=== PATIENT | male | born 1980 | race Caucasian/White ===

== ENCOUNTER 2020-11-08 14:34 | Inpatient (IN) | payer MEDICARE, SELFPAY ==
[2020-11-08] VITALS (8 sets, daily range): BP systolic 122–138; BP diastolic 78–83; PULSE 85–105; RESP 20; TEMP 37.1–38.3; O2SAT 90–94; BMI 30.9
--- NOTE | 2020-11-08 14:34 | PCM.HP.STD ---
HPI - General General Date of Admission: 11/08/20 HPI Narrative MACK CARLOS, is a 40 M who presents presents with shortness of breath since the first. Patient became ill on the and then started becoming short of breath on the first. Patient short of breath with exertion and at rest. Patient presented to outside emergency room and was found to have positive COVID-19. Chest x-ray concerning patchy infiltrates bilaterally. Patient was treated with dexamethasone. Was her hospitalist contacted for admission. Patient was not vaccinated because I do not trust it. Patient thinks he contracted it from someone at work who tested positive for COVID-19 who we worked closely with. [facility] Medical History (Updated 11/08/20 @ 14:[address] Jeremy Blevins DO) Asthma Fibromyalgia HTN (hypertension) Sleep apnea Home Medications duloxetine [Cymbalta] 60 mg PO DAILY 11/08/20 [History Last Taken Unknown] fluticasone propion-salmeterol [Advair Diskus] 1 inh INHALATION Q12H 11/08/20 [History Last Taken 11/07/20 22:00] montelukast [Singulair] 10 mg PO DAILY 11/08/20 [History Last Taken 11/07/20 22:00] theophylline 300 mg PO BID 11/08/20 [History Last Taken 11/07/20 18:00] valsartan 320 mg PO DAILY 11/08/20 [History Last Taken 11/07/20 09:00] Allergy/AdvReac Type Severity Reaction Status Date / Time iodine AdvReac Anaphylaxis Verified 11/08/20 14:44 Family History (Updated 11/08/20 @ 14:[address] Jeremy Blevins DO) Other Asthma Social History (Updated 11/08/20 @ 14:[address] Jeremy Blevins DO) household members: spouse and children Smoking Status: Never smoker ROS ROS Narrative Anosmia. Dysgeusia. Chest pain when he breathes. Denies any venous thromboembolic disease. Fevers chills. All review of systems were negative except as mentioned above in the history of present illness and the other review of systems. Vital Signs Vital Signs Vital Signs: 11/08/20 14:29 Temperature 38.3 C H Temperature Source Oral Pulse Rate 105 H Respiratory Rate 20 H Blood Pressure 138/83 H Blood Pressure Mean 101 Blood Pressure Source Monitor Blood Pressure Position Semi-Fowlers Blood Pressure Location Right Arm Pulse Ox 91 Oxygen Delivery Method Nasal Cannula Oxygen Flow Rate (L/min) 4 Weight Weight: 103.561 kg Body Mass Index (BMI) 30.9 Physical Exam Const alert Constitutional Narrative: Some conversational dyspnea. Pulse ox drops to 87% with talking on 4 L. General Appearance: cooperative HEENT normocephalic Eyes Eyes Narrative: No icterus Neck no lymphadenopathy Resp normal respiratory effort Resp Narrative: Coarse breath sounds bilaterally Cardio regular rate, regular rhythm, S1 normal heart sound and S2 normal heart sound GI normal to inspection, nondistended, normoactive bowel sounds, soft to palpation, non-tender and non-distended Extremity normal to inspection and full ROM Skin no rashes or lesions noted and no wounds Neuro Sensorium / Orientation: awake and alert Psych Mood & Affect: anxious Results Medical Records Data Medical records narrative: COVID-19 test positive PCR CBC: Hemoglobin 13.9, platelets 259, white cells 9.6, lymphocytes 6% BMP: Creatinine 1, potassium 3.8, sodium 134, CRP 11.3, troponin negative x1 EKG Initial EKG: Attestation: I personally reviewed and interpreted this EKG as follows: Prior EKG tracings: available for review EKG Rhythm Intrepretation: Sinus Tachycardia (Heart rate 103. Inferior Q waves. No prior EKG available to compare to.) Assessment & Plan Assessment/Plan (1) COVID-19: (2) Acute respiratory failure with hypoxia: PLAN: 1. Acute COVID-19 pneumonia Date of onset was October 31. Patient will need to quarantine for 20 days through the Patient received dexamethasone in the emergency room at outside hospital. Continue with dexamethasone for a total of 10 days. Start remdesivir. Patient's is at home who had was close encounter with patient and is currently quarantining. Advised that she get vaccinated after she has done quarantine. Patient advised to get vaccinated next 1 to 2months after this bout with Covid as he was unvaccinated prior. Check D-dimer and if elevated to check CT angiogram of the chest I did discuss with the patient since he was apprehensive about getting the vaccine that if he would want any of these therapies including steroids, antivirals VTE prophylaxis and if he were to get worse chemical sedation and potential paralytics have required being on the ventilator. Told if he does want any of those medications then plan would be for for me to just then send him home with oxygen. He states that he wants all available therapies necessary to keep him alive. 2. Acute hypoxic respiratory failure Patient was hypoxic at the outside hospital into the 80s on room air. Currently in the high 80s to low 90s on 4 L nasal cannula I have concerns given patient's deterioration over the past few days that he may continue to to deteriorate despite appropriate therapies. Consult pulmonary for assistance and also for concern for potential pending respiratory collapse 3. 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 I will continue the theophylline for now but will ask for pulmonary's input continuation of this medication. 4. VTE prophylaxis: High risk. LMWH. 5. CODE STATUS: Discussed possibility the patient could decompensate and potentially wind up on ventilator. Patient wants all measures. Therefore patient is full CODE STATUS. Charges/Coding Visit Charges Inpatient E&M: 76645 Init Hosp L3
[2020-11-08 16:07] LABS: Theophylline (Aminophylline) 8.9 ug/mL (10.0-20.0)
[2020-11-08 16:19] LABS: D-Dimer Quantitative (DVT/PE) 0.79 FEU/ug/m (0.27-0.49)
[2020-11-08] MEDS: Ibuprofen 400 MG Tablet PO (16:22)
[2020-11-08 16:31] LABS: Alkaline Phosphatase 84 U/L (45-117)
--- NOTE | 2020-11-08 16:31 | NURSING ---
O2 SAT 86% ON O2 4L NC. INCREASED O2 TO 8L NC TO GET O2 SAT 90.
[2020-11-08] MEDS: Enoxaparin 100 MG/ML Syringe SC (18:40)
[2020-11-08] MEDS: guaiFENesin 600 MG Tablet PO (20:55)
[2020-11-08] MEDS: DULoxetine Hcl 60 MG Capsule PO (20:55)
[2020-11-08] MEDS: Montelukast 10 MG Tablet PO (20:56)
[2020-11-09] VITALS (27 sets, daily range): BP systolic 109–130; BP diastolic 56–89; PULSE 78–102; RESP 16–38; TEMP 36.8–37.6; O2SAT 78–100
[2020-11-09] MEDS: Enoxaparin 100 MG/ML Syringe SC ×2 (05:24→16:55)
[2020-11-09] MEDS: Ipratropium/Albuterol Sulfate 3 ML AMPUL.NEB INHALATION ×4 (07:07→19:04)
[2020-11-09 07:12] LABS: Absolute Lymphocyte Count 1.13 X10^3/uL (0.83-4.51); Absolute Neutrophil Count 11.2 X10^3/uL (2.0-7.7); Basophil# 0.01 X10^3/uL; Basophil% 0.1 % (0-1); Hematocrit 41.9 % (40-54); Hemoglobin 14.2 g/dL (13.0-16.5); Lymphocyte # 1.13 X10^3/ul (0.83-4.51); Lymphocyte % 8.7 % (19-41); Mean Corp Hgb Conc 33.9 g/dL (32-36); Mean Corpuscular Hgb 30.9 pg (27.0-32.0); Mean Corpuscular Volume 91.1 fL (80-94); Mean Platelet Vol. 8.7 fl (6.2-12.0); Monocyte# 0.55 X10^3/uL; Monocyte% 4.2 % (0-10); NRBC Flagged by Analyzer 0 % (0-5); Neutrophil % 86.2 % (47-70); Platelet Count 282 K/mm3 (150-450); RBC Distribution Width CV 13.9 % (11.6-14.6); RBC Distribution Width SD 46.9 fl (35.1-43.9)
[2020-11-09 07:48] LABS: ALB/GLOB Ratio 0.6 RATIO (0.9-2.4); AST(SGOT) 78 U/L (15-37); Alanine Aminotransfer ALT/SGPT 51 U/L (16-61); Albumin, Serum 2.5 g/dL (3.2-5.0); Alkaline Phosphatase 78 U/L (45-117); Anion Gap 5 (5-15); BUN 24 mg/dL (7-18); BUN/Creat Ratio 27.3 RATIO (10-20); Calcium,Total 8.3 mg/dL (8.5-10.1); Chloride 101 mmol/L (98-107); Creatinine, Serum 0.88 mg/dL (0.70-1.30); EST Glomerular Filtration Rate 101 mL/min (>60); Est Glom Filt Rate - Afr Amer 122 mL/min (>60); Estimated Creatinine Clearance 120.03 ml/min; Globulin 4.5 g/dL (2.2-4.2); Glucose 89 mg/dL (74-106); Potassium 4.5 mmol/L (3.5-5.1); Sodium Level 133 mmol/L (136-145)
--- NOTE | 2020-11-09 08:30 | NURSING ---
Pt tired looking. spo2 88% on Monitor in room with pts o2 at 15L High flow. This nurse made pt use his I.S. pt was only able to tolerate 3 reps before he quit despite encouragement. pt placed in prone position while waiting for cps as o2 dropping down to 87-78% on the 15L prior to being prone.
[2020-11-09] MEDS: Montelukast 10 MG Tablet PO (08:37)
[2020-11-09] MEDS: DULoxetine Hcl 60 MG Capsule PO (08:37)
[2020-11-09] MEDS: dexAMETHasone 4 MG Tablet 6 MG PO (08:37)
[2020-11-09] MEDS: guaiFENesin 600 MG Tablet PO ×2 (08:37→20:09)
[2020-11-09] MEDS: Losartan Potassium 100 MG Tablet PO (08:38)
--- NOTE | 2020-11-09 08:41 | NURSING ---
Pt has been prone now approximately 5 min. Spo2 staying 97% on 15L High yobany. CPS and the Charge nurse /Carrie both aware. will hold off on Air Vo at this time.
--- NOTE | 2020-11-09 09:39 | EX.PCM.CONCC ---
Assessment & Plan Assessment/Plan (1) Acute respiratory failure with hypoxia: (2) COVID-19: (3) HTN (hypertension): (4) Sleep apnea: PLAN: RECOMMENDATIONS: 1. Continue remdesivir and Decadron as ordered 2. Attempt to obtain CPAP settings or machine if possible 3. Discontinue theophylline. Add scheduled bronchodilators 4. Wean oxygen as tolerated 5. Diuresis as labs allow 6. Agree with therapeutic Lovenox in the interim IMPRESSIONS: 1. Acute hypoxic respiratory failure secondary to COVID-19 Patient does have a baseline of asthma and nonvaccination. This does increase his risk for significant decompensation from a respiratory standpoint. Patient is open to intubation if necessary. We will discontinue theophylline as this does not provide a therapeutic advantage over bronchodilators and does have the potential of toxicity given its narrow therapeutic index and potential drug drug interactions. Continue with Decadron and Remdesivir as ordered. Inhaled corticosteroids are likely not necessary. Given high potential of decompensation, reasonable to use therapeutic dose Lovenox. May transition to a 10 a inhibitor if patient stabilizes, but currently cannot exclude deterioration requiring intubation and central line. 2. Obesity/sleep apnea/hypertension/poor historian Complicates care, management, recovery and prognosis. Okay to continue with baseline antihypertensive medications from my perspective. Patient would benefit from the use of CPAP with sleep, but is unaware of his settings or DME. Clinical suspicion is for noncompliance, but home machine could be used if found. Cannot exclude the need for BiPAP rescue and the knowledge of baseline CPAP would help with CPAP recommendations. HPI Consult Data Date of Consult: 11/09/20 HPI Narrative HPI Narrative: MACK CARLOS is a 40 M, with past medical history listed below, who presents to [facility] on 11/08/2020 as an outside transfer secondary to hypoxia with COVID-19. Patient reportedly became ill on the initially. Patient had presented to an outside emergency room and was found to have COVID-19. Chest x-ray reportedly showed bilateral patchy infiltrates and he was treated with dexamethasone. Patient was not vaccinated against COVID-19 and believes he contracted from someone at work. Patient does have a history of asthma that is treated with theophylline and Advair. On presentation to [facility], patient was febrile at 38.3 ?C and tachycardic at 105 bpm. Patient was requiring 4 L initially to maintain saturations. However, over the course of his hospitalization patient has gone up to 15 L nasal cannula. Patient subjectively feels slightly worse compared to previous. Patient states that he is experiencing body aches similar to that with his fibromyalgia. Patient is having a cough but is not reporting much production. Patient has been initiated on Decadron and Remdesivir. Patient has not been able to tolerate incentive spirometer and states that he does want to be a full code. Patient reportedly does have an extensive history of asthma and allergies. Patient has never been intubated for his asthma, but was hospitalized as a child. Patient states he has been on theophylline forever and feels that it works well for him. Patient does have albuterol at home. Patient is unclear if he is ever had a pulmonary function study. Patient does report that he has JHONATHAN and that his machine is old. Patient states that no one could bring it to the hospital and he is unaware of his DME provider. Patient does not use supplemental oxygen at baseline. Review of systems otherwise negative from a constitutional, HEENT, respiratory, cardiovascular, GI, genitourinary, musculoskeletal, skin, neurologic, psychiatric and hematologic system unless stated above. [facility] Medical History (Updated 11/09/20 @ 09:[address] Mike Altamirano MD) Asthma Fibromyalgia HTN (hypertension) Sleep apnea Home Medications duloxetine [Cymbalta] 60 mg PO DAILY 11/08/20 [History Last Taken 11/07/20 22:00] fluticasone propion-salmeterol [Advair Diskus] 1 inh INHALATION Q12H 11/08/20 [History Last Taken 11/07/20 22:00] montelukast [Singulair] 10 mg PO DAILY 11/08/20 [History Last Taken 11/07/20 22:00] theophylline 300 mg PO BID 11/08/20 [History Last Taken 11/07/20 18:00] valsartan 320 mg PO DAILY 11/08/20 [History Last Taken 11/07/20 09:00] Allergy/AdvReac Type Severity Reaction Status Date / Time iodine AdvReac Anaphylaxis Verified 11/08/20 14:44 Family History Other Asthma Social History household members: spouse and children Smoking Status: Never smoker ROS ROS Narrative See HPI Physical Exam Const alert Constitutional Narrative: Some conversational dyspnea. Pulse ox drops to 87% with talking on 15 L. General Appearance: cooperative HEENT normocephalic Eyes PERRL, EOMs intact bilaterally and conjunctivae normal Neck no lymphadenopathy Chest inspection of chest normal Chest: symmetrical chest wall rise; Negative for crepitus Resp normal respiratory effort Auscultation: wheezes expiratory wheezes and throughout and diminished lung sounds; Negative for rales or rhonchi Cardio regular rate, regular rhythm, S1 normal heart sound and S2 normal heart sound GI normal to inspection, nondistended, normoactive bowel sounds, soft to palpation, non-tender and non-distended Extremity normal to inspection and full ROM Skin no rashes or lesions noted and no wounds Neuro Sensorium / Orientation: awake and alert Psych Mood & Affect: anxious Lab / Micro Data Result Diagrams: 11/09/20 06:47 11/09/20 06:47 Labs: Laboratory Results - last 24 hr 11/08/20 15:30: Theophylline 8.9 L 11/08/20 15:30: D-Dimer Quant (PE/DVT) 0.79 H* 11/08/20 15:30: Alkaline Phosphatase 84 11/09/20 06:47: WBC 13.0 H, RBC 4.60, Hgb 14.2, Hct 41.9, MCV 91.1, MCH 30.9, MCHC 33.9, RDW Std Deviation 46.9 H, RDW Coeff of Jaclyn 13.9, Plt Count 282, MPV 8.7, Immature Gran % (Auto) 0.800, Neut % (Auto) 86.2 H, Lymph % (Auto) 8.7 L, Door % (Auto) 4.2, Eos % (Auto) 0.0, Baso % (Auto) 0.1, Absolute Neuts (auto) 11.2 H, Absolute Lymphs (auto) 1.13, Nucleated RBC % 0 11/09/20 06:47: Sodium 133 L, Potassium 4.5, Chloride 101, Carbon Dioxide 27.0, Anion Gap 5, BUN 24 H, Creatinine 0.88, Estim Creat Clear Calc 120.03, Est GFR (MDRD) Af Amer 122, Est GFR (MDRD) Non-Af 101, BUN/Creatinine Ratio 27.3 H, Glucose 89, Calcium 8.3 L, Total Bilirubin 0.50, AST 78 H, ALT 51, Alkaline Phosphatase 78, Total Protein 7.0, Albumin 2.5 L, Globulin 4.5 H, Albumin/Globulin Ratio 0.6 L Charges/Coding Visit Charges Inpatient E&M: 44282 Init Hosp L3
--- NOTE | 2020-11-09 10:37 | NURSING ---
Getting breathing tx at this time. pt had stayed prone since this morning at approx 0845. Pt is laying on his side.
[2020-11-09] MEDS: Acetaminophen 325 MG Tablet 650 MG PO (10:52)
--- NOTE | 2020-11-09 11:57 | PN.HOSP_ITS ---
Subjective Subjective Increased oxygen requirements up to 15 liters. Oxygenation stabilized after he was put in prone position. Objective Data Objective Data Vital Signs: Vital Signs Temp Pulse Resp BP Pulse Ox 37.3 C 101 H 22 H 129/71 H 96 11/09/20 10:44 11/09/20 10:44 11/09/20 10:44 11/09/20 10:44 11/09/20 10:44 Oxygen Flow Rate (L/min) 15 Oxygen Delivery Method Nasal Cannula Weight: 103.561 kg Body Mass Index (BMI) 30.9 Intake & Output: Intake and Output for Last 24 Hours 11/07/20 11/08/20 11/09/20 23:59 23:59 23:59 Intake Total 850 / 850 670 / 670 Output Total 750 / 750 925 / 925 Balance 100 / 100 -255 / -255 Medical Nutrition Assessment Dietitian: Malnutrition Criteria Met Start: 11/09/20 10:12 Freq: Status: Active Protocol: Document 11/09/20 10:13 AMALIA (Rec: 11/09/20 10:13 AMALIA [id number]) Nutrition Malnutrition Evidence of Malnutrition Exists Yes Malnutrition (severe): Acute Illness/Injury Evidenced By Suboptimal Energy Intake ( Severe),Weight Loss (Severe) Clinical Problem Acute Disease or Injury Related Malnutrition Etiology related to covid and inadequate po intake to meet estimated nutritional needs Signs/Symptoms as evidenced by 3.1% wt loss and po intake <50% as 1 wk prior to admission Status Active Problem Recommendation Dietitian Recommendations/Changes Will continue regular diet Will provide 240 ml ensure enlive w/ meals for increased nutrition if consumed d/t s/s malnutrition Lab / Micro Data Result Diagrams: 11/09/20 06:47 11/09/20 06:47 Labs: Laboratory Results - last 24 hr 11/08/20 15:30: Theophylline 8.9 L 11/08/20 15:30: D-Dimer Quant (PE/DVT) 0.79 H* 11/08/20 15:30: Alkaline Phosphatase 84 11/09/20 06:47: WBC 13.0 H, RBC 4.60, Hgb 14.2, Hct 41.9, MCV 91.1, MCH 30.9, MCHC 33.9, RDW Std Deviation 46.9 H, RDW Coeff of Jaclyn 13.9, Plt Count 282, MPV 8.7, Immature Gran % (Auto) 0.800, Neut % (Auto) 86.2 H, Lymph % (Auto) 8.7 L, [place] % (Auto) 4.2, Eos % (Auto) 0.0, Baso % (Auto) 0.1, Absolute Neuts (auto) 11.2 H, Absolute Lymphs (auto) 1.13, Nucleated RBC % 0 11/09/20 06:47: Sodium 133 L, Potassium 4.5, Chloride 101, Carbon Dioxide 27.0, Anion Gap 5, BUN 24 H, Creatinine 0.88, Estim Creat Clear Calc 120.03, Est GFR (MDRD) Af Amer 122, Est GFR (MDRD) Non-Af 101, BUN/Creatinine Ratio 27.3 H, Gluc ose 89, Calcium 8.3 L, Total Bilirubin 0.50, AST 78 H, ALT 51, Alkaline Phosphatase 78, Total Protein 7.0, Albumin 2.5 L, Globulin 4.5 H, Albumin/Globulin Ratio 0.6 L Physical Exam Const alert Constitutional Narrative: laying on abdomen. Resp normal respiratory effort and no retractions Resp Narrative: coarse breath sound bilaterally. Cardio regular rate, regular rhythm, S1 normal heart sound and S2 normal heart sound GI normal to inspection, nondistended, normoactive bowel sounds, soft to palpation, non-tender and non-distended Extremity normal to inspection and no clubbing, cyanosis or edema Psych Mood & Affect: depressed Assessment & Plan Assessment/Plan (1) COVID-19: (2) Acute respiratory failure with hypoxia: PLAN: 1. Acute COVID-19 pneumonia Date of onset was October 31. Patient will need to quarantine for 20 days through the Patient received dexamethasone in the emergency room at outside hospital. Continue with dexamethasone for a total of 10 days. Remdesivir through 11/12/2020. Patient's is at home who had was close encounter with patient and is currently quarantining. Advised that she get vaccinated after she has done quarantine. Patient advised to get vaccinated next 1 to 2months after this bout with Covid as he was unvaccinated prior. D-dimer elevated but unable to check CT angiogram to evaluate for PE given that patient develops anaphylaxis with iodine products. I did discuss with the patient since he was apprehensive about getting the vaccine that if he would want any of these therapies including steroids, antivirals VTE prophylaxis and if he were to get worse chemical sedation and potential paralytics have required being on the ventilator. Told if he does want any of those medications then plan would be for for me to just then send h im home with oxygen. He states that he wants all available therapies necessary to keep him alive. 2. Acute hypoxic respiratory failure Patient was hypoxic at the outside hospital into the 80s on room air. Currently in the high 80s to low 90s on 4 L nasal cannula I have concerns given patient's deterioration over the past few days that he may continue to to deteriorate despite appropriate therapies. Patient improved while prone but is on higher flow oxygen currently. Pulmonary following and input appreciated 3. 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 4. VTE prophylaxis: High risk. LMWH. 5. CODE STATUS: Discussed possibility the patient could decompensate and p otentially wind up on ventilator. Patient wants all measures. Therefore patient is full CODE STATUS. Charges/Coding Visit Charges Inpatient E&M: 56729 Subs Hosp L2
--- NOTE | 2020-11-09 16:56 | NURSING ---
Sp02 dropping, pt instructed to go on his abd. pt in prone position again at this nurse increased oxygen to 15L high flow NC from 13 L high flow NC. Sp02 only 89-90%
--- NOTE | 2020-11-09 18:32 | NURSING ---
Dinner arrived., pt assisted back onto back and semi fowlers position. Spo2 on 15L N[place] high flow is staying around 86%. this nurse called and is having Carrie charge nurse call CPS to come and apply Airvo on pt.
[2020-11-09] MEDS: Ibuprofen 400 MG Tablet PO (20:10)
[2020-11-10] VITALS (23 sets, daily range): BP systolic 101–136; BP diastolic 57–90; PULSE 68–89; RESP 12–36; TEMP 36.4–37.3; O2SAT 83–97
[2020-11-10 07:38] LABS: Absolute Lymphocyte Count 0.91 X10^3/uL (0.83-4.51); Absolute Neutrophil Count 9.5 X10^3/uL (2.0-7.7); Basophil# 0.01 X10^3/uL; Basophil% 0.1 % (0-1); Hematocrit 44.3 % (40-54); Hemoglobin 15.2 g/dL (13.0-16.5); Lymphocyte # 0.91 X10^3/ul (0.83-4.51); Mean Corp Hgb Conc 34.3 g/dL (32-36); Mean Corpuscular Volume 90.2 fL (80-94); Mean Platelet Vol. 8.8 fl (6.2-12.0); Monocyte# 0.77 X10^3/uL; Monocyte% 6.8 % (0-10); NRBC Flagged by Analyzer 0 % (0-5); Neutrophil # 9.52 X10^3/uL (2.7-7.7); Neutrophil % 83.9 % (47-70); Platelet Count 326 K/mm3 (150-450); RBC Distribution Width CV 13.8 % (11.6-14.6); Red Blood Count 4.91 M/mm3 (4.6-6.2); White Blood Count 11.4 K/mm3 (4.4-11.0)
[2020-11-10] MEDS: Ipratropium/Albuterol Sulfate 3 ML AMPUL.NEB INHALATION ×4 (07:43→21:12)
[2020-11-10 08:07] LABS: Anion Gap 6 (5-15); BUN 30 mg/dL (7-18); BUN/Creat Ratio 38.8 RATIO (10-20); Calcium,Total 8.8 mg/dL (8.5-10.1); Chloride 104 mmol/L (98-107); Creatinine, Serum 0.77 mg/dL (0.70-1.30); EST Glomerular Filtration Rate 117 mL/min (>60); Est Glom Filt Rate - Afr Amer 142 mL/min (>60); Estimated Creatinine Clearance 137.17 ml/min; Glucose 110 mg/dL (74-106); Potassium 4.5 mmol/L (3.5-5.1); Sodium Level 136 mmol/L (136-145)
[2020-11-10 08:41] LABS: AST(SGOT) 58 U/L (15-37); Alanine Aminotransfer ALT/SGPT 50 U/L (16-61); Albumin, Serum 2.6 g/dL (3.2-5.0); Alkaline Phosphatase 86 U/L (45-117); Bilirubin, Direct 0.13 mg/dL (0.00-0.30); Globulin 4.2 g/dL (2.2-4.2); Protein, Total 6.8 g/dL (6.4-8.2)
[2020-11-10] MEDS: Montelukast 10 MG Tablet PO (09:07)
[2020-11-10] MEDS: DULoxetine Hcl 60 MG Capsule PO (09:07)
[2020-11-10] MEDS: Enoxaparin 100 MG/ML Syringe SC ×2 (09:07→21:13)
[2020-11-10] MEDS: guaiFENesin 600 MG Tablet PO ×2 (09:07→21:12)
[2020-11-10] MEDS: Losartan Potassium 100 MG Tablet PO (09:07)
--- NOTE | 2020-11-10 09:28 | PN.CC_ITS ---
Assessment & Plan Assessment/Plan (1) Acute respiratory failure with hypoxia: (2) COVID-19: (3) HTN (hypertension): (4) Sleep apnea: PLAN: RECOMMENDATIONS: 1. Continue remdesivir and Decadron as ordered 2. Attempt to obtain CPAP settings or machine if possible 3. Continue scheduled bronchodilators. 4. Wean oxygen as tolerated 5. Diuresis as labs allow 6. Agree with therapeutic Lovenox in the interim IMPRESSIONS: 1. Acute hypoxic respiratory failure secondary to COVID-19 Patient does have a baseline of asthma and nonvaccination. This does increase his risk for significant decompensation from a respiratory standpoint. Patient is open to intubation if necessary. We will discontinue home theophylline as this does not provide a therapeutic advantage over bronchodilators and does have the potential of toxicity given its narrow therapeutic index and potential drug drug interactions. Continue with Decadron and Remdesivir as ordered. Inhaled corticosteroids are likely not necessary. Given high potential of decompensation, reasonable to use therapeutic dose Lovenox. May transition to a 10 a inhibitor if patient stabilizes, but currently cannot exclude deterioration requiring intubation and central line. Patient will be challenged with diuretics today. 2. Obesity/sleep apnea/hypertension/poor historian Complicates care, management, recovery and prognosis. Okay to continue with baseline antihypertensive medications from my perspective. Patient would benefit from the use of CPAP with sleep, but is unaware of his settings or DME. Clinical suspicion is for noncompliance, but home machine could be used if found. Cannot exclude the need for BiPAP rescue and the knowledge of baseline CPAP would help with CPAP recommendations. Subjective Subjective Patient did okay overnight. Patient subjectively unchanged compared to previous. Patient still reporting a nonproductive cough. No fevers were noted overnight. Patient still with significant dyspnea on exertion, but feels more comfortable at rest. Objective Data Objective Data Vital Signs: Vital Signs Temp Pulse Resp BP Pulse Ox 36.4 C L 81 18 118/61 94 11/10/20 09:02 11/10/20 09:02 11/10/20 09:02 11/10/20 09:02 11/10/20 09:02 Oxygen Flow Rate (L/min) 60 Oxygen Delivery Method Airvo Weight: 103.561 kg Body Mass Index (BMI) 30.9 Intake & Output: Intake and Output for Last 24 Hours 11/08/20 11/09/20 11/10/20 23:59 23:59 23:59 Intake Total 850 / 850 1340 / 1340 Output Total 750 / 750 1425 / 1425 400 / 400 Balance 100 / 100 -85 / -85 -400 / -400 Medical Nutrition Assessment Dietitian: Malnutrition Criteria Met Start: 11/09/20 10:12 Freq: Status: Active Protocol: Document 11/09/20 10:13 AMALIA (Rec: 11/09/20 10:13 AMALIA [id number]) Nutrition Malnutrition Evidence of Malnutrition Exists Yes Malnutrition (severe): Acute Illness/Injury Evidenced By Suboptimal Energy Intake ( Severe),Weight Loss (Severe) Clinical Problem Acute Disease or Injury Related Malnutrition Etiology related to covid and inadequate po intake to meet estimated nutritional needs Signs/Symptoms as evidenced by 3.1% wt loss and po intake <50% as 1 wk prior to admission Status Active Problem Recommendation Dietitian Recommendations/Changes Will continue regular diet Will provide 240 ml ensure enlive w/ meals for increased nutrition if consumed d/t s/s malnutrition Lab / Micro Data Result Diagrams: 11/10/20 07:19 11/10/20 07:19 Labs: Laboratory Results - last 24 hr 11/10/20 07:19: WBC 11.4 H, RBC 4.91, Hgb 15.2, Hct 44.3, MCV 90.2, MCH 31.0, MCHC 34.3, RDW Std Deviation 46.0 H, RDW Coeff of Jaclyn 13.8, Plt Count 326, MPV 8.8, Immature Gran % (Auto) 1.200 H, Neut % (Auto) 83.9 H, Lymph % (Auto) 8.0 L, [place] % (Auto) 6.8, Eos % (Auto) 0.0, Baso % (Auto) 0.1, Absolute Neuts (auto) 9.5 H, Absolute Lymphs (auto) 0.91, Nucleated RBC % 0 11/10/20 07:19: Sodium 136, Potassium 4.5, Chloride 104, Carbon Dioxide 26.0, Anion Gap 6, BUN 30 H, Creatinine 0.77, Estim Creat Clear Calc 137.17, Est GFR ( MDRD) Af Amer 142, Est GFR (MDRD) Non-Af 117, BUN/Creatinine Ratio 38.8 H, Glucose 110 H, Calcium 8.8 11/10/20 07:19: Total Bilirubin 0.50, Direct Bilirubin 0.13, AST 58 H, ALT 50, Alkaline Phosphatase 86, Total Protein 6.8, Albumin 2.6 L, Globulin 4.2 Physical Exam Const Constitutional Narrative: Some conversational dyspnea. Pulse ox drops to 87% with talking on Airvo Eyes PERRL, EOMs intact bilaterally and conjunctivae normal Neck full ROM and No nuchal rigidity Lymph Lymphatic: no lymphadenopathy noted Chest inspection of chest normal Chest: symmetrical chest wall rise; Negative for crepitus Resp Auscultation: diminished lung sounds; Negative for rales, rhonchi or wheezes Cardio regular rate, regular rhythm, S1 normal heart sound, S2 normal heart sound, no murmurs, no rub and no gallops GI normal to inspection, nondistended, normoactive bowel sounds Extremity normal to inspection, full ROM and normal capillary refill Skin no rashes or lesions noted and no wounds Skin Narrative: Multiple tattoos. Neuro oriented x3, CN's II-XII intact bilaterally, moves all extremities and no focal motor deficits Psych mental status grossly normal, thought process normal, cooperative and affect normal Charges/Coding Visit Charges Inpatient E&M: 89028 Subs Hosp L3
[2020-11-10] MEDS: 0.9% Saline Lock 10 ML Syringe IV (10:08)
[2020-11-10] MEDS: Furosemide 40 MG Tablet PO (10:08)
[2020-11-10] MEDS: dexAMETHasone 4 MG Tablet 6 MG PO (10:08)
--- NOTE | 2020-11-10 13:29 | PCM.PN.HOSP ---
Subjective Subjective Patient is still is very hypoxic. Patient advised to maintain prone position as much as possible. Patient has history of asthma/bronchial hypersensitivity. No fever. Objective Data Objective Data Vital Signs: Vital Signs Temp Pulse Resp BP Pulse Ox 98.4 F 82 20 H 111/71 94 11/10/20 11:48 11/10/20 12:02 11/10/20 12:02 11/10/20 11:48 11/10/20 12:02 Oxygen Flow Rate (L/min) 60 Oxygen Delivery Method Airvo Weight: 228 lb 5 oz Body Mass Index (BMI) 30.9 Intake & Output: Intake and Output for Last 24 Hours 11/08/20 11/09/20 11/10/20 23:59 23:59 23:59 Intake Total 850 / 850 1340 / 1340 200 / 200 Output Total 750 / 750 1425 / 1425 900 / 900 Balance 100 / 100 -85 / -85 -700 / -700 Medical Nutrition Assessment Dietitian: Malnutrition Criteria Met Start: 11/09/20 10:12 Freq: Status: Active Protocol: Document 11/09/20 10:13 AMALIA (Rec: 11/09/20 10:13 AMALIA [id number]) Nutrition Malnutrition Evidence of Malnutrition Exists Yes Malnutrition (severe): Acute Illness/Injury Evidenced By Suboptimal Energy Intake ( Severe),Weight Loss (Severe) Clinical Problem Acute Disease or Injury Related Malnutrition Etiology related to covid and inadequate po intake to meet estimated nutritional needs Signs/Symptoms as evidenced by 3.1% wt loss and po intake <50% as 1 wk prior to admission Status Active Problem Recommendation Dietitian Recommendations/Changes Will continue regular diet Will provide 240 ml ensure enlive w/ meals for increased nutrition if consumed d/t s/s malnutrition Lab / Micro Data Result Diagrams: 11/10/20 07:19 11/10/20 07:19 Labs: Laboratory Results - last 24 hr 11/10/20 07:19: WBC 11.4 H, RBC 4.91, Hgb 15.2, Hct 44.3, MCV 90.2, MCH 31.0, MCHC 34.3, RDW Std Deviation 46.0 H, RDW Coeff of Jaclyn 13.8, Plt Count 326, MPV 8.8, Immature Gran % (Auto) 1.200 H, Neut % (Auto) 83.9 H, Lymph % (Auto) 8.0 L, [place] % (Auto) 6.8, Eos % (Auto) 0.0, Baso % (Auto) 0.1, Absolute Neuts (auto) 9.5 H, Absolute Lymphs (auto) 0.91, Nucleated RBC % 0 11/10/20 07:19: Sodium 136, Potassium 4.5, Chloride 104, Carbon Dioxide 26.0, Anion Gap 6, BUN 30 H, Creatinine 0.77, Estim Creat Clear Calc 137.17, Est GFR (MDRD) Af Amer 142, Est GFR (MDRD) Non-Af 117, BUN/Creatinine Ratio 38.8 H, Glucose 110 H, Calcium 8.8 11/10/20 07:19: Total Bilirubin 0.50, Direct Bilirubin 0.13, AST 58 H, ALT 50, Alkaline Phosphatase 86, Total Protein 6.8, Albumin 2.6 L, Globulin 4.2 Physical Exam Narrative General: Alert, Oriented x3, Cooperative HEENT: Atraumatic, PERRLA, EOMI, Normocephalic Oral: No Gingival or Mucosal Lesions/ Ulcerations Neck: Supple, No JVD, Negative Carotid Bruits Lungs: Air entry diminished in bilateral lung bases. Bilateral coarse crepitations. Severely hypoxic ON AIRVO Cardiovascular: Regular rate, Regular Rhythm, Normal S1, Normal S2, No murmurs Abdomen: Bowel Sounds Present, Soft, Non Tender, Non-Distended : No renal angle tenderness. No suprapubic tenderness. Extremities: No edema, Capillary Refill Less than 3 Seconds Skin: No rashes, No breakdown Musculoskeletal: No Tenderness to Palpation of Joints or Extremities Neurological: Cranial nerves II-XII grossly intact, DTR 2+/4 and Symmetrical, Neuro grossly intact Psych/Mental Status: Normal Affect, Appropriate. Assessment & Plan Assessment/Plan (1) Acute respiratory failure with hypoxia: (2) COVID-19: PLAN: 1. Acute hypoxic respiratory failure secondary to bilateral COVID-19 pneumonia: Date of onset October 31, quarantine for 20 days through . On high flow oxygen. Seen by slasher operator will try to obtain CPAP if possible. On scheduled bronchodilator. Patient on Decadron and remdesivir. On Mucinex, incentive spirometry and Pep. 2. Asthma and allergies: Patient has history of smoking cigarettes, started in teenage and quit few years ago. Patient home theophylline is on hold because of narrow therapeutic index and potential drug drug interaction.. 3. Obesity, possible obstructive sleep apnea: BMI 31 Kd per meter squared VTE prophylaxis: High risk. LMWH. CODE STATUS: Full code Charges/Coding Visit Charges Inpatient E&M: 42949 Subs Hosp L2
[2020-11-11] VITALS (22 sets, daily range): BP systolic 100–124; BP diastolic 63–86; PULSE 69–86; RESP 12–38; TEMP 36.8–37.2; O2SAT 92–99
--- NOTE | 2020-11-11 03:59 | CPS ---
Pt is in the prone position with bipap on.
--- NOTE | 2020-11-11 04:36 | NURSING ---
Positioned into prone position during this time.
--- NOTE | 2020-11-11 06:41 | NURSING ---
Patient turned from prone position to supine position during this time. Remains on BIPAP.
[2020-11-11] MEDS: Ipratropium/Albuterol Sulfate 3 ML AMPUL.NEB INHALATION ×4 (08:00→19:32)
[2020-11-11] MEDS: dexAMETHasone 4 MG Tablet 6 MG PO (09:48)
[2020-11-11] MEDS: Enoxaparin 100 MG/ML Syringe SC ×2 (09:48→21:22)
[2020-11-11] MEDS: Losartan Potassium 100 MG Tablet PO (09:49)
[2020-11-11] MEDS: Montelukast 10 MG Tablet PO (09:49)
[2020-11-11] MEDS: DULoxetine Hcl 60 MG Capsule PO (09:49)
[2020-11-11] MEDS: guaiFENesin 600 MG Tablet PO ×2 (09:49→21:22)
--- NOTE | 2020-11-11 12:30 | CASEMGMT ---
SW assisted pt in completing POA for Healthcare. Pt put Terri Babcockr as his medical POA. Pt has original form, SW advised pt when out of quarantine to provide a copy to his PCP and to this hospital. SW remains available for any additional assist. SHUKRI Ramirez
--- NOTE | 2020-11-11 12:40 | CASEMGMT ---
RAMA GARCIA Assessment: Face to Face with pt for initial transition planning/care coordination assessment. RAMA GARCIA introduced self and role at [facility], pt voices understanding and consents to assessment. Pt is A/O x4 and answers all questions appropriately at this time. Pt sitting up on edge of bed with O2 on in no distress ready to eat lunch. Care providers, pharmacy, and demographics verified/updated. Admitting Dx: COVID 19 PCP:[facility] Specialists:Pt denies Preferred Pharmacy: [facility] Insurance: [employer] Prescription Benefit: yes LW/HPOA: Pt denies having a LW. Pt states social service liaison just was in room to complete DPOA. He states his DPOA is his sig other Terri Samano. LNOK: Terri Oconnorurer, sig other Living Arrangements: Pt lives with sig other and son in a single story house with 7 steps to enter with a rail. Pt reports being I in ADL's and denies concerns at home. Transportation: Pt drives self and denies concerns with transportation. DME/HHC: Pt denies having any DME in the home nor hx of HHC. 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 He states he was first tested with a positive result at his employer. Pt states he has been trying to quarantine from his sig other but he does not have separate bedroom and bathroom he can use. Pt does have family who is able to provide him with groceries and supplies. Pt provided with a verbal list of local in network DME companies should he need O2 upon dc. Pt chooses [employer]. Pt states no concerns with going home at time of dc. Pt states no further concerns/needs. CM to follow. Advised pt to ask CM if any further question/concerns/needs arise, voices understanding. Pt Goal: Home Plan: Home
--- NOTE | 2020-11-11 13:37 | PCM.PN.HOSP ---
Subjective Subjective Patient is still short of breath with mild cough. Objective Data Objective Data Vital Signs: Vital Signs Temp Pulse Resp BP Pulse Ox 98.2 F 81 20 H 108/64 93 11/11/20 12:24 11/11/20 12:24 11/11/20 12:24 11/11/20 12:24 11/11/20 12:24 Oxygen Flow Rate (L/min) 60 Oxygen Delivery Method Airvo Weight: 228 lb 6.382 oz Body Mass Index (BMI) 30.9 Intake & Output: Intake and Output for Last 24 Hours 11/09/20 11/10/20 11/11/20 23:59 23:59 23:59 Intake Total 1340 / 1340 1300 / 1300 1570 / 1570 Output Total 1425 / 1425 1625 / 1625 500 / 500 Balance -85 / -85 -325 / -325 1070 / 1070 Medical Nutrition Assessment Dietitian: Malnutrition Criteria Met Start: 11/09/20 10:12 Freq: Status: Active Protocol: Document 11/11/20 11:46 RMA (Rec: 11/11/20 11:47 RMA [id number]) Nutrition Malnutrition Evidence of Malnutrition Exists Yes Malnutrition (severe): Acute Illness/Injury Evidenced By Suboptimal Energy Intake ( Severe),Weight Loss (Severe) Clinical Problem Acute Disease or Injury Related Malnutrition Etiology Severe protein-calorie malnutrition in the context of acute illness related to inadequate oral intake Signs/Symptoms as evidenced by 3.1% wt loss and po intake <50% as 1 wk prior to admission Status Resolved Problem Recommendation Dietitian Recommendations/Changes Will continue regular diet for now, intake gradually improving. Will d/c ensure enlive w/ meals due to refusal. Lab / Micro Data Result Diagrams: 11/10/20 07:19 11/10/20 07:19 Physical Exam Narrative General: Alert, Oriented x3, Cooperative HEENT: Atraumatic, PERRLA, EOMI, Normocephalic Oral: No Gingival or Mucosal Lesions/ Ulcerations Neck: Supple, No JVD, Negative Carotid Bruits Lungs: Air entry diminished in bilateral lung bases. Bilateral coarse crepitations. ON AIRVO Cardiovascular: Regular rate, Regular Rhythm, Normal S1, Normal S2, No murmurs Abdomen: Bowel Sounds Present, Soft, Non Tender, Non-Distended : No renal angle tenderness. No suprapubic tenderness. Extremities: No edema, Capillary Refill Less than 3 Seconds Skin: No rashes, No breakdown Musculoskeletal: No Tenderness to Palpation of Joints or Extremities Neurological: Cranial nerves II-XII grossly intact, DTR 2+/4 and Symmetrical, Neuro grossly intact Psych/Mental Status: Normal Affect, Appropriate. Assessment & Plan Assessment/Plan (1) Acute respiratory failure with hypoxia: (2) COVID-19: PLAN: 1. Acute hypoxic respiratory failure secondary to bilateral COVID-19 pneumonia: Date of onset October 31, quarantine for 20 days through . On high flow oxygen. Seen by sales marketing coordinator will try to obtain CPAP if possible. On scheduled bronchodilator. Patient on Decadron and remdesivir. On Mucinex, incentive spirometry and Pep. 11/11: Prone position encouraged. Continue treatment. Discussed with the patient's who was on phone with the patient and gave clinical update. 2. Asthma and allergies: Patient has history of smoking cigarettes, started in teenage and quit few years ago. Patient home theophylline is on hold because of narrow therapeutic index and potential drug drug interaction.. 3. Obesity, possible obstructive sleep apnea: BMI 31 Kd per meter squared VTE prophylaxis: High risk. LMWH. CODE STATUS: Full code Charges/Coding Visit Charges Inpatient E&M: 63259 Subs Hosp L2
--- NOTE | 2020-11-11 14:00 | PN.CC_ITS ---
Assessment & Plan Assessment/Plan (1) Acute respiratory failure with hypoxia: (2) COVID-19: PLAN: RECOMMENDATIONS: 1. Wean FiO2 to maintain oxygen saturations at or above 90%. 2. Continue remdesivir to complete treatment course. 3. Continue Decadron to complete 10 days of therapy. 4. Continue Lovenox for now. Unclear need for therapeutic dosing. 5. Obtain CTA chest if there is any further clinical decompensation. 6. Continue bronchodilator therapy. 7. Maintain euvolemic state with IV diuretic therapy. 8. Encourage awake prone positioning. IMPRESSIONS: 1. Acute hypoxemic respiratory failure secondary to COVID-19 pneumonia The patient is unvaccinated with a self-reported history of asthma. He will be continued on remdesivir as ordered. Continue to monitor liver and renal function. Continue Decadron to complete 10-day treatment course. Unclear need for therapeutic Lovenox dosing. D-dimer was only mildly elevated. If oxygenation status worsens, obtain CTA chest. For now, continue supplemental oxygen to maintain saturations at or above 90%. Awake prone positioning was encouraged. BiPAP therapy can be utilized, if clinically indicated. 2. Self-reported asthma/obesity/obstructive sleep apnea Complicates care, management, recovery and prognosis. Continue bronchodilator therapy as ordered. This note was generated with [employer] dictation software. It may contain incorrect words, spelling, and punctuation that were not noted in checking the note before signing. Subjective Subjective The patient was seen and examined at the bedside this morning. Events from the last 24 hours have been reviewed. The patient is currently afebrile, hemodynamically stable and maintaining appropriate oxygen saturations on airvo heated high flow with an FiO2 requirement of 93% and flow rate of 60 L/min. The patient is currently documented to be overall net +760 mL for the hospital admission. The patient is currently on remdesivir, Decadron and Lovenox therapy. Objective Data Objective Data The patient's most recent lab work, culture data and imaging studies have all been personally reviewed. Vital Signs: Vital Signs Temp Pulse Resp BP Pulse Ox 98.2 F 81 20 H 108/64 93 11/11/20 12:24 11/11/20 12:24 11/11/20 12:24 11/11/20 12:24 11/11/20 12:24 Oxygen Flow Rate (L/min) 60 Oxygen Delivery Method Airvo Weight: 103.6 kg Body Mass Index (BMI) 30.9 Intake & Output: Intake and Output for Last 24 Hours 11/09/20 11/10/20 11/11/20 23:59 23:59 23:59 Intake Total 1340 / 1340 1300 / 1300 1570 / 1570 Output Total 1425 / 1425 1625 / 1625 500 / 500 Balance -85 / -85 -325 / -325 1070 / 1070 Medical Nutrition Assessment Dietitian: Malnutrition Criteria Met Start: 11/09/20 10:12 Freq: Status: Active Protocol: Document 11/11/20 11:46 RMA (Rec: 11/11/20 11:47 RMA [id number]) Nutrition Malnutrition Evidence of Malnutrition Exists Yes Malnutrition (severe): Acute Illness/Injury Evidenced By Suboptimal Energy Intake ( Severe),Weight Loss (Severe) Clinical Problem Acute Disease or Injury Related Malnutrition Etiology Severe protein-calorie malnutrition in the context of acute illness related to inadequate oral intake Signs/Symptoms as evidenced by 3.1% wt loss and po intake <50% as 1 wk prior to admission Status Resolved Problem Recommendation Dietitian Recommendations/Changes Will continue regular diet for now, intake gradually improving. Will d/c ensure enlive w/ meals due to refusal. Lab / Micro Data Attestation: I reviewed the patient's lab results. Result Diagrams: 11/10/20 07:19 11/10/20 07:19 Physical Exam Const alert General Appearance: cooperative and comfortable Nutritional Appearance: obese HEENT normocephalic and head/scalp atraumatic Eyes PERRL, EOMs intact bilaterally and conjunctivae normal Neck supple Chest inspection of chest normal Resp Auscultation: diminished lung sounds; Negative for rales, rhonchi or wheezes Cardio regular rate and regular rhythm GI normal to inspection, nondistended, normoactive bowel sounds Extremity no clubbing, cyanosis or edema Skin no rashes or lesions noted Neuro moves all extremities and no focal motor deficits Psych cooperative and affect normal Charges/Coding Visit Charges Inpatient E&M: 19545 Subs Hosp L3
[2020-11-11] MEDS: Acetaminophen 325 MG Tablet 650 MG PO (16:32)
[2020-11-12] VITALS (23 sets, daily range): BP systolic 102–113; BP diastolic 52–70; PULSE 63–96; RESP 12–36; TEMP 36.8–36.9; O2SAT 87–97
[2020-11-12] MEDS: Ipratropium/Albuterol Sulfate 3 ML AMPUL.NEB INHALATION ×4 (07:15→19:00)
[2020-11-12] MEDS: dexAMETHasone 4 MG Tablet 6 MG PO (10:18)
[2020-11-12] MEDS: Enoxaparin 100 MG/ML Syringe SC ×2 (10:18→20:22)
[2020-11-12] MEDS: Losartan Potassium 100 MG Tablet PO (10:20)
[2020-11-12] MEDS: Montelukast 10 MG Tablet PO (10:20)
[2020-11-12] MEDS: DULoxetine Hcl 60 MG Capsule PO (10:20)
[2020-11-12] MEDS: guaiFENesin 1,200 MG Tablet 1200 MG PO ×2 (10:29→20:21)
--- NOTE | 2020-11-12 12:33 | PN.CC_ITS ---
Assessment & Plan Assessment/Plan (1) Acute respiratory failure with hypoxia: (2) COVID-19: PLAN: RECOMMENDATIONS: 1. Wean FiO2 to maintain oxygen saturations at or above 90%. 2. Continue Decadron to complete 10 days of therapy. 3. Continue Lovenox for now. Unclear need for therapeutic dosing. 4. Obtain CTA chest if there is any further clinical decompensation. 5. Continue bronchodilator therapy. 6. Maintain euvolemic state with IV diuretic therapy. 7. Encourage awake prone positioning. IMPRESSIONS: 1. Acute hypoxemic respiratory failure secondary to COVID-19 pneumonia The patient is unvaccinated with a self-reported history of asthma. He has now completed a treatment course of remdesivir and will remain on Decadron to complete a 10-day course. Unclear need for therapeutic Lovenox dosing. D-dimer was only mildly elevated. If oxygenation status worsens, obtain CTA chest. For now, continue supplemental oxygen to maintain saturations at or above 90%. Awake prone positioning was encouraged. BiPAP therapy can be utilized, if clinically indicated. 2. Self-reported asthma/obesity/obstructive sleep apnea Complicates care, management, recovery and prognosis. Continue bronchodilator therapy as ordered. This note was generated with [employer] dictation software. It may contain incorrect words, spelling, and punctuation that were not noted in checking the note before signing. Subjective Subjective The patient was seen and examined at the bedside this morning. Events from the last 24 hours have been reviewed. The patient is currently afebrile, hemodynamically stable and maintaining appropriate oxygen saturations on airvo heated high flow with an FiO2 requirement of 80% and flow rate of 55 L/min. The patient does report feeling more labored and short of breath today. He is currently documented to be overall net even for the hospitalization. He remains on Decadron and Lovenox twice daily. He has now completed his treatment course of remdesivir. Objective Data Objective Data The patient's most recent lab work, culture data and imaging studies have all been personally reviewed. Vital Signs: Vital Signs Temp Pulse Resp BP Pulse Ox 98.3 F 74 36 H 103/57 L 93 11/12/20 10:09 11/12/20 10:25 11/12/20 10:25 11/12/20 10:11/12/20 10:25 Oxygen Flow Rate (L/min) 35 Oxygen Delivery Method Airvo Weight: 103.6 kg Body Mass Index (BMI) 30.9 Intake & Output: Intake and Output for Last 24 Hours 11/10/20 11/11/20 11/12/20 23:59 23:59 23:59 Intake Total 1300 / 1300 2320 / 2320 Output Total 1625 / 1625 2200 / 2200 Balance -325 / -325 120 / 120 Medical Nutrition Assessment Dietitian: Malnutrition Criteria Met Start: 11/09/20 10:12 Freq: Status: Active Protocol: Document 11/11/20 11:46 RMA (Rec: 11/11/20 11:47 RMA [id number]) Nutrition Malnutrition Evidence of Malnutrition Exists Yes Malnutrition (severe): Acute Illness/Injury Evidenced By Suboptimal Energy Intake ( Severe),Weight Loss (Severe) Clinical Problem Acute Disease or Injury Related Malnutrition Etiology Severe protein-calorie malnutrition in the context of acute illness related to inadequate oral intake Signs/Symptoms as evidenced by 3.1% wt loss and po intake <50% as 1 wk prior to admission Status Resolved Problem Recommendation Dietitian Recommendations/Changes Will continue regular diet for now, intake gradually improving. Will d/c ensure enlive w/ meals due to refusal. Lab / Micro Data Attestation: I reviewed the patient's lab results. Result Diagrams: 11/10/20 07:19 11/10/20 07:19 Physical Exam Const alert General Appearance: cooperative and comfortable Nutritional Appearance: obese HEENT normocephalic and head/scalp atraumatic Eyes PERRL, EOMs intact bilaterally and conjunctivae normal Neck supple Chest inspection of chest normal Resp Effort and Inspection: tachypneic Auscultation: diminished lung sounds; Negative for rales, rhonchi or wheezes Cardio regular rate and regular rhythm GI normal to inspection, nondistended, normoactive bowel sounds Extremity no clubbing, cyanosis or edema Skin no rashes or lesions noted Neuro moves all extremities and no focal motor deficits Psych cooperative and affect normal Charges/Coding Visit Charges Inpatient E&M: 81439 Subs Hosp L3
[2020-11-12] MEDS: Acetaminophen 325 MG Tablet 650 MG PO (13:25)
[2020-11-12] MEDS: Benzonatate 100 MG Capsule 200 MG PO ×2 (13:25→20:21)
--- NOTE | 2020-11-12 15:50 | PN.HOSP_ITS ---
Subjective Subjective Patient had bout of cough even before eating. No signs of choking. Hypoxia on 60% FiO2 oxygen supplement. Objective Data Objective Data Vital Signs: Vital Signs Temp Pulse Resp BP Pulse Ox 98.3 F 80 26 H 109/56 L 93 11/12/20 14:45 11/12/20 14:57 11/12/20 14:45 11/12/20 14:45 11/12/20 14:45 Oxygen Flow Rate (L/min) 60 Oxygen Delivery Method Airvo Weight: 228 lb 6.382 oz Body Mass Index (BMI) 30.9 Intake & Output: Intake and Output for Last 24 Hours 11/10/20 11/11/20 11/12/20 23:59 23:59 23:59 Intake Total 1300 / 1300 2320 / 2320 250 / 250 Output Total 1625 / 1625 2200 / 2200 690 / 690 Balance -325 / -325 120 / 120 -440 / -440 Medical Nutrition Assessment Dietitian: Malnutrition Criteria Met Start: 11/09/20 10:12 Freq: Status: Active Protocol: Document 11/11/20 11:46 RMA (Rec: 11/11/20 11:47 RMA [id number]) Nutrition Malnutrition Evidence of Malnutrition Exists Yes Malnutrition (severe): Acute Illness/Injury Evidenced By Suboptimal Energy Intake ( Severe),Weight Loss (Severe) Clinical Problem Acute Disease or Injury Related Malnutrition Etiology Severe protein-calorie malnutrition in the context of acute illness related to inadequate oral intake Signs/Symptoms as evidenced by 3.1% wt loss and po intake <50% as 1 wk prior to admission Status Resolved Problem Recommendation Dietitian Recommendations/Changes Will continue regular diet for now, intake gradually improving. Will d/c ensure enlive w/ meals due to refusal. Lab / Micro Data Result Diagrams: 11/10/20 07:19 11/10/20 07:19 Physical Exam Narrative General: Alert, Oriented x3, Cooperative HEENT: Atraumatic, PERRLA, EOMI, Normocephalic Oral: No Gingival or Mucosal Lesions/ Ulcerations Neck: Supple, No JVD, Negative Carotid Bruits Lungs: Air entry diminished in bilateral lung bases. Bilateral fine rhonchi. ON AIRVO Cardiovascular: Regular rate, Regular Rhythm, Normal S1, Normal S2, No murmurs Abdomen: Bowel Sounds Present, Soft, Non Tender, Non-Distended : No renal angle tenderness. No suprapubic tenderness. Extremities: No edema, Capillary Refill Less than 3 Seconds Skin: No rashes, No breakdown Musculoskeletal: No Tenderness to Palpation of Joints or Extremities Neurological: Cranial nerves II-XII grossly intact, DTR 2+/4 and Symmetrical, Neuro grossly intact Psych/Mental Status: Normal Affect, Appropriate. Assessment & Plan Assessment/Plan (1) Acute respiratory failure with hypoxia: (2) COVID-19: PLAN: 1. Acute hypoxic respiratory failure secondary to bilateral COVID- 19 pneumonia: Date of onset October 31, quarantine for 20 days through . On high flow oxygen. Seen by kitchen utility associate will try to obtain CPAP if possible. On scheduled bronchodilator. Patient on Decadron and remdesivir. On Mucinex, incentive spirometry and Pep. 11/11: Prone position encouraged. Continue treatment. Discussed with the patient's who was on phone with the patient and gave clinical update. 11/12: On Mucinex. Tessalon Perles added. On Cepacol, and supportive medications. Continue to titrate down the oxygen to keep pulse ox 90%. 2. Asthma and allergies: Patient has history of smoking cigarettes, started in teenage and quit few years ago. Patient home theophylline is on hold because of narrow therapeutic index and potential drug drug interaction.. 3. Obesity, possible obstructive sleep apnea: BMI 31 KG per meter square VTE prophylaxis: High risk. LMWH. CODE STATUS: Full code Charges/Coding Visit Charges Inpatient E&M: 69352 Subs Hosp L2
--- NOTE | 2020-11-12 19:35 | NURSING ---
Patient prone at this time, 93% on Airvo, RT aware
[2020-11-13] VITALS (27 sets, daily range): BP systolic 96–124; BP diastolic 52–80; PULSE 67–92; RESP 12–36; TEMP 36.8–37.9; O2SAT 88–97
[2020-11-13] MEDS: Benzonatate 100 MG Capsule 200 MG PO ×3 (06:14→21:51)
[2020-11-13] MEDS: Ipratropium/Albuterol Sulfate 3 ML AMPUL.NEB INHALATION ×4 (07:23→20:07)
--- NOTE | 2020-11-13 09:14 | NURSING ---
Pt was sitting in recliner with airvo in on, he was eating and oxygen level dropped to 62, bipap was put on, he resisted, but was instrusted lips are blue, he was very tachyphemic, and did not resist very lone, and bipap was put on. Resp therapy arrived and increased o2 level. O2 level increased to 96% after a few minutes. He was assisted to edge of recliner, to void, and assisted back to bed. at 0915 Dr Julian entered room and assessed pt. He was informed pt had voided approx. 500 cc but it was orangey in color. pt is now resting comfortable on left side with O2 pox at 99%.
--- NOTE | 2020-11-13 10:39 | PN.CC_ITS ---
Assessment & Plan Assessment/Plan (1) Acute respiratory failure with hypoxia: (2) COVID-19: PLAN: RECOMMENDATIONS: 1. Wean FiO2 to maintain oxygen saturations at or above 90%. 2. Continue Decadron to complete 10 days of therapy. 3. Continue Lovenox for now. Unclear need for therapeutic dosing. 4. Obtain CTA chest if there is any further clinical decompensation. 5. Continue bronchodilator therapy. 6. Maintain euvolemic state with IV diuretic therapy. 7. Encourage awake prone positioning. IMPRESSIONS: 1. Acute hypoxemic respiratory failure secondary to COVID-19 pneumonia The patient is unvaccinated with a self-reported history of asthma. He has now completed a treatment course of remdesivir and will remain on Decadron to complete a 10-day course. Unclear need for therapeutic Lovenox dosing. D-dimer was only mildly elevated. If oxygenation status worsens, obtain CTA chest. For now, continue supplemental oxygen to maintain saturations at or above 90%. Awake prone positioning was encouraged. 2. Self-reported asthma/obesity/obstructive sleep apnea Complicates care, management, recovery and prognosis. Continue bronchodilator therapy as ordered. This note was generated with [employer] dictation software. It may contain incorrect words, spelling, and punctuation that were not noted in checking the note before signing. Subjective Subjective The patient was seen and examined at the bedside this morning. Events from the last 24 hours have been reviewed. The patient is currently afebrile, hemodynamically stable and maintaining appropriate oxygen saturations on BiPAP with an FiO2 requirement of 80%. The patient apparently became progressively hypoxemic this morning when he attempted to eat with his heated high flow cannula in place. The patient is currently documented to be overall net -1.6 L for the hospital admission. He remains on Decadron and Lovenox. He has already completed a treatment course of remdesivir. Objective Data Objective Data The patient's most recent lab work, culture data and imaging studies have all been personally reviewed. Vital Signs: Vital Signs Temp Pulse Resp BP Pulse Ox 98.2 F 70 30 H 116/79 93 11/13/20 06:12 11/13/20 09:06 11/13/20 07:23 11/13/20 06:12 11/13/20 07:23 Oxygen Flow Rate (L/min) 60 Oxygen Delivery Method Bi-pap Weight: 103.6 kg Body Mass Index (BMI) 30.9 Intake & Output: Intake and Output for Last 24 Hours 11/11/20 11/12/20 11/13/20 23:59 23:59 23:59 Intake Total 2320 / 2320 250 / 250 120 / 120 Output Total 2200 / 2200 1340 / 1340 Balance 120 / 120 -1090 / -1090 120 / 120 Medical Nutrition Assessment Dietitian: Malnutrition Criteria Met Start: 11/09/20 10:12 Freq: Status: Active Protocol: Document 11/11/20 11:46 RMA (Rec: 11/11/20 11:47 RMA [id number]) Nutrition Malnutrition Evidence of Malnutrition Exists Yes Malnutrition (severe): Acute Illness/Injury Evidenced By Suboptimal Energy Intake ( Severe),Weight Loss (Severe) Clinical Problem Acute Disease or Injury Related Malnutrition Etiology Severe protein-calorie malnutrition in the context of acute illness related to inadequate oral intake Signs/Symptoms as evidenced by 3.1% wt loss and po intake <50% as 1 wk prior to admission Status Resolved Problem Recommendation Dietitian Recommendations/Changes Will continue regular diet for now, intake gradually improving. Will d/c ensure enlive w/ meals due to refusal. Lab / Micro Data Attestation: I reviewed the patient's lab results. Result Diagrams: 11/13/20 15:45 11/13/20 15:45 Physical Exam Const alert General Appearance: cooperative and on BiPAP Nutritional Appearance: obese HEENT normocephalic and head/scalp atraumatic Eyes PERRL, EOMs intact bilaterally and conjunctivae normal Neck supple Chest inspection of chest normal Resp Effort and Inspection: tachypneic Auscultation: diminished lung sounds; Negative for rales, rhonchi or wheezes Cardio regular rate and regular rhythm GI normal to inspection, nondistended, normoactive bowel sounds Extremity no clubbing, cyanosis or edema Skin no rashes or lesions noted Neuro moves all extremities and no focal motor deficits Psych cooperative and affect normal Charges/Coding Visit Charges Inpatient E&M: 58253 Subs Hosp L3
[2020-11-13] MEDS: Enoxaparin 100 MG/ML Syringe SC ×2 (11:10→21:56)
[2020-11-13] MEDS: dexAMETHasone 4 MG Tablet 6 MG PO (11:11)
[2020-11-13] MEDS: DULoxetine Hcl 60 MG Capsule PO (11:12)
[2020-11-13] MEDS: guaiFENesin 1,200 MG Tablet 1200 MG PO ×2 (11:13→21:51)
[2020-11-13] MEDS: Montelukast 10 MG Tablet PO (11:13)
--- NOTE | 2020-11-13 14:37 | PCM.PN.HOSP ---
Subjective Subjective Patient is very short of breath and desaturated even on 80% FiO2, 60 L/min AIRVO. Subsequently patient was put on BiPAP 80% FiO2. Objective Data Objective Data Vital Signs: Vital Signs Temp Pulse Resp BP Pulse Ox 98.7 F 92 20 H 105/59 L 88 11/13/20 11:05 11/13/20 14:25 11/13/20 14:25 11/13/20 11:05 11/13/20 14:25 Oxygen Flow Rate (L/min) 60 Oxygen Delivery Method Bi-pap Weight: 228 lb 6.382 oz Body Mass Index (BMI) 30.9 Intake & Output: Intake and Output for Last 24 Hours 11/11/20 11/12/20 11/13/20 23:59 23:59 23:59 Intake Total 2320 / 2320 250 / 250 120 / 120 Output Total 2200 / 2200 1340 / 1340 500 / 500 Balance 120 / 120 -1090 / -1090 -380 / -380 Medical Nutrition Assessment Dietitian: Malnutrition Criteria Met Start: 11/09/20 10:12 Freq: Status: Active Protocol: Document 11/11/20 11:46 RMA (Rec: 11/11/20 11:47 RMA [id number]) Nutrition Malnutrition Evidence of Malnutrition Exists Yes Malnutrition (severe): Acute Illness/Injury Evidenced By Suboptimal Energy Intake ( Severe),Weight Loss (Severe) Clinical Problem Acute Disease or Injury Related Malnutrition Etiology Severe protein-calorie malnutrition in the context of acute illness related to inadequate oral intake Signs/Symptoms as evidenced by 3.1% wt loss and po intake <50% as 1 wk prior to admission Status Resolved Problem Recommendation Dietitian Recommendations/Changes Will continue regular diet for now, intake gradually improving. Will d/c ensure enlive w/ meals due to refusal. Lab / Micro Data Result Diagrams: 11/10/20 07:19 11/10/20 07:19 Physical Exam Narrative General: Moderate to severe respiratory distress. On BiPAP HEENT: Atraumatic, PERRLA, EOMI, Normocephalic Oral: No Gingival or Mucosal Lesions/ Ulcerations Neck: Supple, No JVD, Negative Carotid Bruits Lungs: Air entry severely diminished in bilateral lung bases. Bilateral fine rhonchi. Tachypneic respiratory rate 25 to 30/min Cardiovascular: Regular rate, Regular Rhythm, Normal S1, Normal S2, No murmurs Abdomen: Bowel Sounds Present, Soft, Non Tender, Non-Distended : No renal angle tenderness. No suprapubic tenderness. Extremities: No edema, Capillary Refill Less than 3 Seconds Skin: No rashes, No breakdown Musculoskeletal: No Tenderness to Palpation of Joints or Extremities Neurological: Cranial nerves II-XII grossly intact, DTR 2+/4 and Symmetrical, Neuro grossly intact Psych/Mental Status: In distress. Assessment & Plan Assessment/Plan (1) Acute respiratory failure with hypoxia: (2) COVID-19: PLAN: 1. Acute hypoxic respiratory failure secondary to bilateral COVID-19 pneumonia: Date of onset October 31, quarantine for 20 days through . On high flow oxygen. Seen by residential appliance repair technician will try to obtain CPAP if possible. On scheduled bronchodilator. Patient on Decadron and remdesivir. On Mucinex, incentive spirometry and Pep. 11/11: Prone position encouraged. Continue treatment. Discussed with the patient's who was on phone with the patient and gave clinical update. 11/12: On Mucinex. Tessalon Perles added. On Cepacol, and supportive medications. Continue to titrate down the oxygen to keep pulse ox 90%. 11/13: Patient has severe tachypnea and hypoxia even on AIRVO, subsequently changed to BiPAP 80% FiO2, /. Patient heart rate is controlled and blood pressure is 105/59. Monitor closely. If you have further desaturate will need to transfer to ICU for possible need for intubation. Labs including inflammatory markers ordered. 2. Asthma and allergies: Patient has history of smoking cigarettes, started in teenage and quit few years ago. Patient home theophylline is on hold because of narrow therapeutic index and potential drug drug interaction.. 3. Obesity, possible obstructive sleep apnea: BMI 31 KG per meter square VTE prophylaxis: High risk. LMWH. CODE STATUS: Full code Total time of the visit including total time spent in counseling or coordination of care, (more than 50% of the total time, spent in obtaining medical information from nurses and other ancillary care providers,explaining to the patient about labs, imaging, diagnosis and management), discussion with respiratory therapist and nursing staff, review of labs and imaging is 30 minutes. Charges/Coding Visit Charges Inpatient E&M: 69988 Subs Hosp L3
[2020-11-13] MEDS: Acetaminophen 325 MG Tablet 650 MG PO (14:51)
[2020-11-13 15:58] LABS: Absolute Lymphocyte Count 0.61 X10^3/uL (0.83-4.51); Absolute Neutrophil Count 13.9 X10^3/uL (2.0-7.7); Basophil# 0.05 X10^3/uL; Basophil% 0.3 % (0-1); Eosinophil# 0.03 X10^3/uL; Eosinophils% 0.2 % (0-5); Hematocrit 44.3 % (40-54); Lymphocyte # 0.61 X10^3/ul (0.83-4.51); Lymphocyte % 3.9 % (19-41); Mean Corp Hgb Conc 33.9 g/dL (32-36); Mean Corpuscular Hgb 30.7 pg (27.0-32.0); Mean Corpuscular Volume 90.8 fL (80-94); Mean Platelet Vol. 8.6 fl (6.2-12.0); Monocyte# 0.85 X10^3/uL; Monocyte% 5.4 % (0-10); NRBC Flagged by Analyzer 0 % (0-5); Neutrophil # 13.85 X10^3/uL (2.7-7.7); Neutrophil % 87.9 % (47-70); Platelet Count 487 K/mm3 (150-450); RBC Distribution Width SD 43.1 fl (35.1-43.9); Red Blood Count 4.88 M/mm3 (4.6-6.2); White Blood Count 15.8 K/mm3 (4.4-11.0)
[2020-11-13 16:18] LABS: ALB/GLOB Ratio 0.6 RATIO (0.9-2.4); AST(SGOT) 36 U/L (15-37); Alanine Aminotransfer ALT/SGPT 69 U/L (16-61); Albumin, Serum 2.6 g/dL (3.2-5.0); Alkaline Phosphatase 103 U/L (45-117); Anion Gap 5 (5-15); BUN 26 mg/dL (7-18); BUN/Creat Ratio 34.1 RATIO (10-20); CPK Total, Creatine Kinase 110 U/L (39-308); Calcium,Total 8.6 mg/dL (8.5-10.1); Chloride 102 mmol/L (98-107); Creatinine, Serum 0.76 mg/dL (0.70-1.30); EST Glomerular Filtration Rate 119 mL/min (>60); Est Glom Filt Rate - Afr Amer 144 mL/min (>60); Estimated Creatinine Clearance 138.98 ml/min; Globulin 4.2 g/dL (2.2-4.2); Glucose 123 mg/dL (74-106); LDH 601 U/L (87-241); Magnesium 2.2 mg/dL (1.6-2.6); Phosphorus 2.7 mg/dL (2.5-4.9); Potassium 4.5 mmol/L (3.5-5.1); Protein, Total 6.8 g/dL (6.4-8.2); Sodium Level 133 mmol/L (136-145)
[2020-11-13 16:23] LABS: Procalcitonin 0.16 ng/mL (0.00-0.09)
[2020-11-13 16:41] LABS: D-Dimer Quantitative (DVT/PE) 0.76 FEU/ug/m (0.27-0.49)
--- NOTE | 2020-11-13 17:57 | NURSING ---
Dr. Julian is aware of Ddimer of 0.76 and aware that lovenox is 100mg and is BID. No new orders.
[2020-11-14] VITALS (33 sets, daily range): BP systolic 101–126; BP diastolic 59–80; PULSE 68–94; RESP 12–43; TEMP 36–37.3; O2SAT 62–96
[2020-11-14] MEDS: Benzonatate 100 MG Capsule 200 MG PO ×3 (05:07→20:11)
[2020-11-14] MEDS: Ipratropium/Albuterol Sulfate 3 ML AMPUL.NEB INHALATION ×4 (07:39→18:30)
--- NOTE | 2020-11-14 07:50 | NURSING ---
LATE ENTRY - 729 - PT ASKING TO HAVE BIPAP MASK REMOVED. PT ANXIOUS, RESP 43. STATES I CAN'T BREATHE. RT @ BS - PLACED PT ON AIRVO W/HIS AEROSOL TX. INITIALLY, SATS DROPPED INTO LOW 70'S. AFTER TX COMPLETE & PT MORE CALM, O2 SAT 91 ON AIRVO 60L/MIN, 95% O2.
[2020-11-14] MEDS: Montelukast 10 MG Tablet PO (07:57)
[2020-11-14] MEDS: guaiFENesin 1,200 MG Tablet 1200 MG PO ×2 (07:57→20:11)
[2020-11-14] MEDS: DULoxetine Hcl 60 MG Capsule PO (07:57)
[2020-11-14] MEDS: Enoxaparin 100 MG/ML Syringe SC ×2 (07:57→20:11)
[2020-11-14] MEDS: dexAMETHasone 4 MG Tablet 6 MG PO (07:57)
[2020-11-14] MEDS: Ibuprofen 400 MG Tablet PO (08:17)
--- NOTE | 2020-11-14 09:48 | PCM.PN.HOSP ---
Subjective Subjective Seen and examined. Patient is still short of breath on arrival. Denies any fever or chills. Going to be transferred to ICU Objective Data Objective Data Vital Signs: Vital Signs Temp Pulse Resp BP Pulse Ox 98.8 F 90 22 H 117/75 95 11/14/20 07:30 11/14/20 07:40 11/14/20 07:40 11/14/20 07:30 11/14/20 07:40 Oxygen Flow Rate (L/min) 60 Oxygen Delivery Method Airvo Weight: 228 lb 6.382 oz Body Mass Index (BMI) 30.9 Intake & Output: Intake and Output for Last 24 Hours 11/12/20 11/13/20 11/14/20 23:59 23:59 23:59 Intake Total 250 / 250 270 / 270 200 / 200 Output Total 1340 / 1340 1260 / 1260 600 / 600 Balance -1090 / -1090 -990 / -990 -400 / -400 Medical Nutrition Assessment Dietitian: Malnutrition Criteria Met Start: 11/09/20 10:12 Freq: Status: Active Protocol: Document 11/11/20 11:46 RMA (Rec: 11/11/20 11:47 RMA [id number]) Nutrition Malnutrition Evidence of Malnutrition Exists Yes Malnutrition (severe): Acute Illness/Injury Evidenced By Suboptimal Energy Intake ( Severe),Weight Loss (Severe) Clinical Problem Acute Disease or Injury Related Malnutrition Etiology Severe protein-calorie malnutrition in the context of acute illness related to inadequate oral intake Signs/Symptoms as evidenced by 3.1% wt loss and po intake <50% as 1 wk prior to admission Status Resolved Problem Recommendation Dietitian Recommendations/Changes Will continue regular diet for now, intake gradually improving. Will d/c ensure enlive w/ meals due to refusal. Lab / Micro Data Result Diagrams: 11/13/20 15:45 11/13/20 15:45 Labs: Laboratory Results - last 24 hr 11/13/20 15:45: WBC 15.8 H, RBC 4.88, Hgb 15.0, Hct 44.3, MCV 90.8, MCH 30.7, MCHC 33.9, RDW Std Deviation 43.1, RDW Coeff of Jaclyn 13.0, Plt Count 487 H, MPV 8.6, Immature Gran % (Auto) 2.300 H, Neut % (Auto) 87.9 H, Lymph % (Auto) 3.9 L, [place] % (Auto) 5.4, Eos % (Auto) 0.2, Baso % (Auto) 0.3, Absolute Neuts (auto) 13.9 H, Absolute Lymphs (auto) 0.61 L, Nucleated RBC % 0 11/13/20 15:45: D-Dimer Quant (PE/DVT) 0.76 H* 11/13/20 15:45: Sodium 133 L, Potassium 4.5, Chloride 102, Carbon Dioxide 26.0, Anion Gap 5, BUN 26 H, Creatinine 0.76, Estim Creat Clear Calc 138.98, Est GFR (MDRD) Af Amer 144, Est GFR (MDRD) Non-Af 119, BUN/Creatinine Ratio 34.1 H, Glucose 123 H, Calcium 8.6, Phosphorus 2.7, Magnesium 2.2, Total Bilirubin 0.80, AST 36, ALT 69 H, Alkaline Phosphatase 103, Lactate Dehydrogenase 601 H, Total Creatine Kinase 110, C-React Prot Ext Range 49.50 H, Total Protein 6.8, Albumin 2.6 L, Globulin 4.2, Albumin/Globulin Ratio 0.6 L 11/13/20 15:45: Procalcitonin 0.16 H Physical Exam Narrative General: On AIRVO, short of breath HEENT: Atraumatic, PERRLA, EOMI, Normocephalic Oral: No Gingival or Mucosal Lesions/ Ulcerations Neck: Supple, No JVD, Negative Carotid Bruits Lungs: Air entry severely diminished in bilateral lung bases. Bilateral fine rhonchi. Tachypneic respiratory rate 25 to 30/min Cardiovascular: Regular rate, Regular Rhythm, Normal S1, Normal S2, No murmurs Abdomen: Bowel Sounds Present, Soft, Non Tender, Non-Distended : No renal angle tenderness. No suprapubic tenderness. Extremities: No edema, Capillary Refill Less than 3 Seconds Skin: No rashes, No breakdown Musculoskeletal: No Tenderness to Palpation of Joints or Extremities Neurological: Cranial nerves II-XII grossly intact, DTR 2+/4 and Symmetrical, Neuro grossly intact Psych/Mental Status: flat affect. Assessment & Plan Assessment/Plan (1) Acute respiratory failure with hypoxia: (2) COVID-19: PLAN: 1. Acute hypoxic respiratory failure secondary to bilateral COVID-19 pneumonia: Date of onset October 31, quarantine for 20 days through . On high flow oxygen. Seen by research and development chemist will try to obtain CPAP if possible. On scheduled bronchodilator. Patient on Decadron and remdesivir. On Mucinex, incentive spirometry and Pep. 11/11: Prone position encouraged. Continue treatment. Discussed with the patient's who was on phone with the patient and gave clinical update. 11/12: On Mucinex. Tessalon Perles added. On Cepacol, and supportive medications. Continue to titrate down the oxygen to keep pulse ox 90%. 11/13: Patient has severe tachypnea and hypoxia even on AIRVO, subsequently changed to BiPAP 80% FiO2, . Patient heart rate is controlled and blood pressure is 105/59. Monitor closely. If you have further desaturate will need to transfer to ICU for possible need for intubation. Labs including inflammatory markers ordered. 11/14: Discussed with nursing staff and research and development chemist. Patient is being transferred to the ICU. Labs shows elevated procalcitonin and high inflammatory markers. Leukocytosis with lymphopenia. K4.5. 2. Asthma and allergies: Patient has history of smoking cigarettes, started in teenage and quit few years ago. Patient home theophylline is on hold because of narrow therapeutic index and potential drug drug interaction.. 3. Obesity, possible obstructive sleep apnea: BMI 31 KG per meter square VTE prophylaxis: High risk. LMWH. CODE STATUS: Full code Total time of the visit including total time spent in counseling or coordination of care, (more than 50% of the total time, spent in obtaining medical information from nurses and other ancillary care providers,explaining to the patient about labs, imaging, diagnosis and management), discussion with respiratory therapist and nursing staff, review of labs and imaging is 30 minutes. Charges/Coding Visit Charges Inpatient E&M: 67377 Subs Hosp L2
--- NOTE | 2020-11-14 09:50 | PN.CC_ITS ---
Assessment & Plan Assessment/Plan (1) Acute respiratory failure with hypoxia: (2) COVID-19: PLAN: RECOMMENDATIONS: 1. Transfer to ICU level of care. 2. Wean FiO2 to maintain oxygen saturations at or above 90%. 3. Continue Decadron to complete 10 days of therapy. 4. Continue Lovenox. 5. Continue bronchodilator therapy. 6. Maintain euvolemic state with IV diuretic therapy. 7. Encourage awake prone positioning. 8. If the patient continues to decompensate from a respiratory perspective will consider intubation. IMPRESSIONS: 1. Acute hypoxemic respiratory failure secondary to COVID-19 pneumonia The patient is unvaccinated with a self-reported history of asthma. He has now completed a treatment course of remdesivir and will remain on Decadron to complete a 10-day course. Continue Lovenox twice daily as ordered. D-dimer was only mildly elevated. The patient's oxygenation status has continued to worsen. Therefore, I would recommend that he be placed on noninvasive positive pressure ventilatory support and transferred to the medical intensive care unit for further management. FiO2 can be weaned to maintain oxygen saturations at or above 90%. 2. Self-reported asthma/obesity/obstructive sleep apnea Complicates care, management, recovery and prognosis. Continue bronchodilator therapy as ordered. This note was generated with [employer] dictation software. It may contain incorrect words, spelling, and punctuation that were not noted in checking the note before signing. Subjective Subjective The patient was seen and examined at the bedside this morning. Events from the last 24 hours have been reviewed. The patient is currently maintaining appropriate oxygen saturations on noninvasive positive pressure ventilatory support with an FiO2 requirement of 70%. There are plans for him to be transferred to the medical intensive care unit, given overall clinical decompensation. He is currently documented to be overall net -1.7 L for the hospital admission. He remains on Decadron and Lovenox. Objective Data Objective Data The patient's most recent lab work, culture data and imaging studies have all been personally reviewed. Vital Signs: Vital Signs Temp Pulse Resp BP Pulse Ox 98.8 F 90 22 H 117/75 95 11/14/20 07:30 11/14/20 07:40 11/14/20 07:40 11/14/20 07:30 11/14/20 07:40 Oxygen Flow Rate (L/min) 60 Oxygen Delivery Method Airvo Weight: 103.6 kg Body Mass Index (BMI) 30.9 Intake & Output: Intake and Output for Last 24 Hours 11/12/20 11/13/20 11/14/20 23:59 23:59 23:59 Intake Total 250 / 250 270 / 270 200 / 200 Output Total 1340 / 1340 1260 / 1260 600 / 600 Balance -1090 / -1090 -990 / -990 -400 / -400 Medical Nutrition Assessment Dietitian: Malnutrition Criteria Met Start: 11/09/20 10:12 Freq: Status: Active Protocol: Document 11/11/20 11:46 RMA (Rec: 11/11/20 11:47 RMA [id number]) Nutrition Malnutrition Evidence of Malnutrition Exists Yes Malnutrition (severe): Acute Illness/Injury Evidenced By Suboptimal Energy Intake ( Severe),Weight Loss (Severe) Clinical Problem Acute Disease or Injury Related Malnutrition Etiology Severe protein-calorie malnutrition in the context of acute illness related to inadequate oral intake Signs/Symptoms as evidenced by 3.1% wt loss and po intake <50% as 1 wk prior to admission Status Resolved Problem Recommendation Dietitian Recommendations/Changes Will continue regular diet for now, intake gradually improving. Will d/c ensure enlive w/ meals due to refusal. Lab / Micro Data Attestation: I reviewed the patient's lab results. Result Diagrams: 11/13/20 15:45 11/13/20 15:45 Labs: Laboratory Results - last 24 hr 11/13/20 15:45: WBC 15.8 H, RBC 4.88, Hgb 15.0, Hct 44.3, MCV 90.8, MCH 30.7, MCHC 33.9, RDW Std Deviation 43.1, RDW Coeff of Jaclyn 13.0, Plt Count 487 H, MPV 8.6, Immature Gran % (Auto) 2.300 H, Neut % (Auto) 87.9 H, Lymph % (Auto) 3.9 L, [place] % (Auto) 5.4, Eos % (Auto) 0.2, Baso % (Auto) 0.3, Absolute Neuts (auto) 13.9 H, Absolute Lymphs (auto) 0.61 L, Nucleated RBC % 0 11/13/20 15:45: D-Dimer Quant (PE/DVT) 0.76 H* 11/13/20 15:45: Sodium 133 L, Potassium 4.5, Chloride 102, Carbon Dioxide 26.0, Anion Gap 5, BUN 26 H, Creatinine 0.76, Estim Creat Clear Calc 138.98, Est GFR (MDRD) Af Amer 144, Est GFR (MDRD) Non-Af 119, BUN/Creatinine Ratio 34.1 H, Glucose 123 H, Calcium 8.6, Phosphorus 2.7, Magnesium 2.2, Total Bilirubin 0.80, AST 36, ALT 69 H, Alkaline Phosphatase 103, Lactate Dehydrogenase 601 H, Total Creatine Kinase 110, C-React Prot Ext Range 49.50 H, Total Protein 6.8, Albumin 2.6 L, Globulin 4.2, Albumin/Globulin Ratio 0.6 L 11/13/20 15:45: Procalcitonin 0.16 H Physical Exam Const alert General Appearance: cooperative and on BiPAP Nutritional Appearance: obese HEENT normocephalic and head/scalp atraumatic Eyes PERRL and conjunctivae normal Neck supple General: trachea midline Chest inspection of chest normal Resp Effort and Inspection: tachypneic Auscultation: diminished lung sounds; Negative for rales, rhonchi or wheezes Cardio regular rate and regular rhythm GI normal to inspection, nondistended, normoactive bowel sounds Extremity no clubbing, cyanosis or edema Skin no rashes or lesions noted Neuro CN's II-XII intact bilaterally and no focal motor deficits Psych cooperative and affect normal Charges/Coding Visit Charges Inpatient E&M: 38302 Subs Hosp L3
[2020-11-14] MEDS: Losartan Potassium 100 MG Tablet PO (10:23)
--- NOTE | 2020-11-14 11:23 | NURSING ---
REPORT CALLED TO ANH IN ICU
--- NOTE | 2020-11-14 11:37 | NURSING ---
RECIEVED CALL FROM ICU CHARGE NURSE. AWARE NO BED AT THIS TIME D/T NEED TO DIVERT BED TO MORE CRITICAL PATIENT.
--- NOTE | 2020-11-14 14:21 | NURSING ---
LATE ENTRY - PT TRANSFERRED TO ICU, ROOM 201 VIA BED
[2020-11-15] VITALS (49 sets, daily range): BP systolic 68–124; BP diastolic 46–92; PULSE 58–102; RESP 11–29; TEMP 36–37.2; O2SAT 59–95
[2020-11-15] MEDS: Ibuprofen 400 MG Tablet PO (02:00)
[2020-11-15] MEDS: Acetaminophen 325 MG Tablet 650 MG PO (02:01)
--- NOTE | 2020-11-15 05:46 | PCM.PN.INT ---
Assessment & Plan Assessment/Plan (1) Acute respiratory failure with hypoxia: (2) COVID-19: PLAN: RECOMMENDATIONS: 1. Proceed with intubation. 2. Place patient on assist control mode of mechanical ventilation. Wean FiO2/PEEP for saturations greater than 90%. 3. Maintain plateau pressures less than 30. 4. Obtain and send sputum for culture. 5. Okay to initiate tube feeds today. 6. Propofol and fentanyl for sedation. 7. Continue Decadron to complete 10-day treatment course. 8. Continue twice daily Lovenox. 9. Start appropriate GI prophylaxis. 10. Place on empiric antimicrobials, pending infectious work-up. IMPRESSIONS: 1. Acute hypoxemic respiratory failure secondary to COVID-19 pneumonia The patient is unvaccinated with a self-reported history of asthma. He has now completed a treatment course of remdesivir and remains on Decadron. Despite the aforementioned, the patient continued to decompensate from a respiratory perspective, ultimately requiring transfer to the ICU and subsequent intubation on the morning of November 15. At this time, the patient will be maintained on assist control mode of mechanical ventilation. FiO2 and PEEP will be weaned as tolerated. Goal to maintain plateau pressures less than 30. The patient will be continued on twice daily Lovenox as ordered. Empiric antimicrobials will be initiated today as well, pending further infectious work-up. As needed diuretic therapy can be utilized to maintain euvolemic state. Okay from my perspective to start tube feeds today. 2. Self-reported asthma/obesity/obstructive sleep apnea Complicates care, management, recovery and prognosis. Continue bronchodilator therapy as ordered. TIME: 38 minutes of critical care time, inclusive of procedures, was spent addressing the patient's acute hypoxemic respiratory failure secondary to COVID-19 pneumonia, history of asthma, review of all data and collaboration with the care team. ([id number]) Subjective Subjective The patient was seen and examined at the bedside this morning. Events from the last 24 hours have been reviewed. The patient is currently afebrile, hemodynamically stable and maintaining appropriate oxygen saturations on AVAPS with an FiO2 requirement of 95%. The patient was transferred to the ICU yesterday as a consequence of further respiratory decompensation. The patient has been maintained on noninvasive positive pressure ventilatory support with marginal oxygen saturations. The patient is currently documented to be overall net -1.8 L for the hospital admission. The patient remains on Decadron and Lovenox. He has already completed a treatment course of remdesivir. Given the patient's overall clinical trajectory and marginal oxygen saturations despite near maximal FiO2 on noninvasive positive pressure ventilatory support, the decision was made to proceed with intubation after discussing with the patient. Intubation Indication: Respiratory failure Consent was obtained from: Patient The patient was placed in the appropriate sniffing position. Preoxygenated sedation via BiPAP was provided for a minimum of 3 minutes. The patient had continuous cardiac as well as pulse oximetry monitoring during the procedure. Procedure sedation was provided by the administration of 4 mg of Versed, 20 mg of etomidate and 100 mg of succinylcholine. Direct laryngoscopy was then performed using a number 4 MAC blade, which revealed a grade 1 view. A 7.5 mm endotracheal tube was visualized advancing between the cords to the level of 24 cm at the lip. The stylette was then removed and discarded. Tube placement was confirmed by fogging in the tube along with equal and bilateral breath sounds. Colorimetric change was visualized on the CO2 meter. The cuff was then inflated and the tube secured using a commercially available device. A good pulse oximetry waveform was seen on the monitor throughout the procedure. A portable chest x-ray has been ordered to confirm appropriate placement. The patient tolerated the procedure well. Objective Data Objective Data The patient's most recent lab work, culture data and imaging studies have all been personally reviewed. Vital Signs: Vital Signs Temp Pulse Resp BP Pulse Ox 98.9 F 75 20 H 122/78 H 90 11/15/20 00:00 11/15/20 04:43 11/15/20 04:00 11/15/20 04:00 11/15/20 04:00 Oxygen Flow Rate (L/min) 60 Oxygen Delivery Method Bi-pap Weight: 103.6 kg Body Mass Index (BMI) 30.9 Intake & Output: Intake and Output for Last 24 Hours 11/13/20 11/14/20 11/15/20 23:59 23:59 23:59 Intake Total 270 / 270 1400 / 1400 Output Total 1260 / 1260 950 / 950 Balance -990 / -990 450 / 450 Medical Nutrition Assessment Dietitian: Malnutrition Criteria Met Start: 11/09/20 10:12 Freq: Status: Active Protocol: Document 11/11/20 11:46 RMA (Rec: 11/11/20 11:47 A [id number]) Nutrition Malnutrition Evidence of Malnutrition Exists Yes Malnutrition (severe): Acute Illness/Injury Evidenced By Suboptimal Energy Intake ( Severe),Weight Loss (Severe) Clinical Problem Acute Disease or Injury Related Malnutrition Etiology Severe protein-calorie malnutrition in the context of acute illness related to inadequate oral intake Signs/Symptoms as evidenced by 3.1% wt loss and po intake <50% as 1 wk prior to admission Status Resolved Problem Recommendation Dietitian Recommendations/Changes Will continue regular diet for now, intake gradually improving. Will d/c ensure enlive w/ meals due to refusal. Lab / Micro Data Attestation: I reviewed the patient's lab results. Result Diagrams: 11/13/20 15:45 11/13/20 15:45 Physical Exam Const alert General Appearance: cooperative and on BiPAP Nutritional Appearance: obese HEENT normocephalic and head/scalp atraumatic Eyes PERRL and conjunctivae normal Neck supple General: trachea midline Chest inspection of chest normal Resp Effort and Inspection: tachypneic Auscultation: diminished lung sounds; Negative for rales, rhonchi or wheezes Cardio regular rate and regular rhythm GI normal to inspection, nondistended, normoactive bowel sounds Extremity no clubbing, cyanosis or edema Skin no rashes or lesions noted Neuro CN's II-XII intact bilaterally and no focal motor deficits Psych cooperative and affect normal Charges/Coding Procedures Hospitalists Procedures: 46045 Critial Care 1st Hr
[2020-11-15] MEDS: Midazolam 2 MG/2 ML Syringe 4 MG IV (06:43)
[2020-11-15] MEDS: Succinylcholine Chloride 200 MG/10 ML Vial 100 MG IV (06:44)
[2020-11-15] MEDS: Etomidate 20 MG/10 ML Vial IV ×2 (06:44→07:20)
[2020-11-15] MEDS: Propofol 10MG/Ml 1,000 MG/100 ML Bottle 18.6 MG CONT INF (06:52)
--- NOTE | 2020-11-15 06:52 | RAD_ITS ---
EXAM: XR CHEST, 1 VIEW CLINICAL INDICATION: ETT tube placement TECHNIQUE: Frontal view of the chest. This report was created using CREAT report generation technology. COMPARISON: None. FINDINGS: LUNGS AND PLEURAL SPACES: Pulmonary hypoinflation. Suspicious ill-defined interstitial infiltrates in both lungs. No pneumothorax. No effusion. HEART: Unremarkable. Cardiac silhouette not enlarged. MEDIASTINUM: Soft tissue air emphysema in both sides of the neck. There is also pneumomediastinum. BONES/JOINTS: Unremarkable. SOFT TISSUES: Unremarkable. TUBES, LINES AND DEVICES: ET tube tip is 4 cm above the damaris. NG tube sidehole is below the EG junction. RAD/Chest 1 View (Portable) IMPRESSION: 1. Interstitial pneumonitis in both lungs worrisome for Covid 19 pneumonia. 2. Pneumomediastinum and soft tissue air emphysema in both sides of the neck. 3. Satisfactory placement of ET tube and NG tube. Electronically Signed: Heath Modi MD at 9:34 EDT , Service support ,
[2020-11-15] MEDS: Ipratropium/Albuterol Sulfate 3 ML AMPUL.NEB INHALATION ×4 (07:05→19:00)
--- NOTE | 2020-11-15 07:09 | NURSING ---
Dr Grajeda in room @ 0640 Explained intubation and process to patient, patient agreeable to intubation at this time. Versed given @ 0643 Etomidate given @ 06:44 Succinylcholine given @ 06:44 ETT placed @ 06:[address] Grajeda it is a 7.5 25@lip OG placed @ 07:00 Soriano placed @ 07:03
[2020-11-15] MEDS: Propofol 10MG/Ml 1,000 MG/100 ML Bottle 31.1 MG CONT INF ×4 (07:46→19:24)
[2020-11-15 08:06] LABS: Allen Test Positive; Base Excess -2 mmol/L (-2 to +2); Bicarbonate 24.1 mmol/L (22-26); Blood Gas Specimen Type ART; FI02 100; Mode AC; O2 Delivery Device Adult Vent; PEEP 15; PO2 59 mmHG (75-100); RR 16; SITE R Radial; SO2 88 % (95-99); Total Carbon Dioxide 26 mmol/L; Vt 450; pCO2 44.9 mmHg (35-45); pH 7.34 (7.35-7.45)
[2020-11-15 08:45] LABS: CPK Total, Creatine Kinase 130 U/L (39-308); Triglycerides 242 mg/dL
[2020-11-15 08:52] LABS: M R Staph aureus DNA By PCR Negative (Negative); Probe Check PASS; Specimen Processing Control PASS
[2020-11-15 09:24] LABS: Absolute Lymphocyte Count 0.89 X10^3/uL (0.83-4.51); Absolute Neutrophil Count 18.2 X10^3/uL (2.0-7.7); Basophil# 0.05 X10^3/uL; Basophil% 0.2 % (0-1); Eosinophil# 0.28 X10^3/uL; Eosinophils% 1.4 % (0-5); Hematocrit 45.4 % (40-54); Hemoglobin 15.1 g/dL (13.0-16.5); Lymphocyte # 0.89 X10^3/ul (0.83-4.51); Lymphocyte % 4.4 % (19-41); Mean Corp Hgb Conc 33.3 g/dL (32-36); Mean Corpuscular Hgb 30.5 pg (27.0-32.0); Mean Corpuscular Volume 91.7 fL (80-94); Mean Platelet Vol. 9.2 fl (6.2-12.0); Monocyte# 0.46 X10^3/uL; Monocyte% 2.3 % (0-10); NRBC Flagged by Analyzer 0 % (0-5); Neutrophil # 18.24 X10^3/uL (2.7-7.7); Neutrophil % 89.4 % (47-70); Platelet Count 647 K/mm3 (150-450); RBC Distribution Width CV 13.2 % (11.6-14.6); RBC Distribution Width SD 44.5 fl (35.1-43.9); Red Blood Count 4.95 M/mm3 (4.6-6.2); White Blood Count 20.4 K/mm3 (4.4-11.0)
[2020-11-15 09:33] LABS: ALB/GLOB Ratio 0.5 RATIO (0.9-2.4); AST(SGOT) 40 U/L (15-37); Alanine Aminotransfer ALT/SGPT 88 U/L (16-61); Albumin, Serum 2.3 g/dL (3.2-5.0); Alkaline Phosphatase 92 U/L (45-117); Anion Gap 9 (5-15); BUN 37 mg/dL (7-18); BUN/Creat Ratio 35.2 RATIO (10-20); Calcium,Total 8.8 mg/dL (8.5-10.1); Chloride 102 mmol/L (98-107); Creatinine, Serum 1.05 mg/dL (0.70-1.30); EST Glomerular Filtration Rate 82 mL/min (>60); Est Glom Filt Rate - Afr Amer 100 mL/min (>60); Estimated Creatinine Clearance 100.59 ml/min; Globulin 4.6 g/dL (2.2-4.2); Glucose 104 mg/dL (74-106); Potassium 4.1 mmol/L (3.5-5.1); Protein, Total 6.9 g/dL (6.4-8.2); Sodium Level 134 mmol/L (136-145)
[2020-11-15] MEDS: Enoxaparin 100 MG/ML Syringe SC ×2 (10:14→21:31)
[2020-11-15] MEDS: dexAMETHasone 4 MG Tablet 6 MG GT (10:14)
[2020-11-15] MEDS: Chlorhexidine 15 ML PO ×2 (10:14→21:31)
[2020-11-15] MEDS: Montelukast 10 MG Tablet GT (10:15)
[2020-11-15] MEDS: CHLORHEXIDINE GLUC 2% CLOTH 1 EACH TOWELETTE TOPICAL (10:15)
[2020-11-15] MEDS: 0.9% Saline Lock 10 ML Syringe IV (10:15)
--- NOTE | 2020-11-15 11:31 | PCS.PANDOC ---
PANDEMIC DOCUMENTATION INITIATED: Date: 10/20/2020 Time: 190
[2020-11-15] MEDS: Vital AF 1.2 Cal Liquid 1,000 ML 25 ML GT (12:16)
[2020-11-15] MEDS: Dexmedetomidine 1,000 mcg in 0.9% NS 240 mL 38.9 MCG CONT INF ×2 (12:16→19:23)
--- NOTE | 2020-11-15 12:28 | PN.HOSP_ITS ---
Subjective Subjective The patient was intubated yesterday in ICU. On broad-spectrum IV antibiotic. sedative. On volume control AC mode of ventilator Objective Data Objective Data Vital Signs: Vital Signs Temp Pulse Resp BP Pulse Ox 96.8 F L 78 15 90/58 L 90 11/15/20 08:00 11/15/20 11:00 11/15/20 11:00 11/15/20 11:00 11/15/20 11:00 Oxygen Flow Rate (L/min) 60 Oxygen Delivery Method Mechanical Ventilator Weight: 228 lb 6.382 oz Body Mass Index (BMI) 30.9 Intake & Output: Intake and Output for Last 24 Hours 11/13/20 11/14/20 11/15/20 23:59 23:59 23:59 Intake Total 270 / 270 1400 / 1400 544.10 / 544.10 Output Total 1260 / 1260 950 / 950 300 / 300 Balance -990 / -990 450 / 450 244.10 / 244.10 Medical Nutrition Assessment Dietitian: Malnutrition Criteria Met Start: 11/09/20 10:12 Freq: Status: Active Protocol: Document 11/15/20 11:18 AG (Rec: 11/15/20 11:18 AG [id number]) Nutrition Malnutrition Evidence of Malnutrition Exists Yes Malnutrition (severe): Acute Illness/Injury Evidenced By Suboptimal Energy Intake ( Severe),Weight Loss (Severe) Clinical Problem Acute Disease or Injury Related Malnutrition Etiology Severe, acute malnutrition r/t inadequate energy intake d/t acute illness Signs/Symptoms as evidenced by 3kg/3.1% unintentional wt loss and estimated PO intake meeting < 50% x 1 week prior to admission Status Active Problem Recommendation Dietitian Recommendations/Changes Will make NPO while intubated; Vital AF 1.2 via OGT at goal rate of 80mL/hour w/ 125mL H2O flush every 4 hours to provide 2304 calories, 144 g protein, and 2307mL total fluid/day. Would start at 25mL /hour and increase by 15mL every 8-12 hours as tolerated until goal rate is achieved. Lab / Micro Data Result Diagrams: 11/15/20 08:10 11/15/20 08:10 Labs: Laboratory Results - last 24 hr 11/15/20 07:05: MRSA (PCR) Negative 11/15/20 08:10: Total Creatine Kinase 130, Triglycerides 242 H 11/15/20 08:10: WBC 20.4 H, RBC 4.95, Hgb 15.1, Hct 45.4, MCV 91.7, MCH 30.5, MCHC 33.3, RDW Std Deviation 44.5 H, RDW Coeff of Jaclyn 13.2, Plt Count 647 H, MPV 9.2, Immature Gran % (Auto) 2.300 H, Neut % (Auto) 89.4 H, Lymph % (Auto) 4.4 L, Charlotte % (Auto) 2.3, Eos % (Auto) 1.4, Baso % (Auto) 0.2, Absolute Neuts (auto) 18.2 H, Absolute Lymphs (auto) 0.89, Nucleated RBC % 0 11/15/20 08:10: Sodium 134 L, Potassium 4.1, Chloride 102, Carbon Dioxide 23.0, Anion Gap 9, BUN 37 H, Creatinine 1.05, Estim Creat Clear Calc 100.59, Est GFR (MDRD) Af Amer 100, Est GFR (MDRD) Non-Af 82, BUN/Creatinine Ratio 35.2 H, Glucose 104, Calcium 8.8, Total Bilirubin 1.20 H, AST 40 H, ALT 88 H, Alkaline Phosphatase 92, Total Protein 6.9, Albumin 2.3 L, Globulin 4.6 H, Albumin/Globulin Ratio 0.5 L Micro: Microbiology 11/15/20 07:00 Sputum, Induced/Lukens Gram Stain - Final 11/15/20 07:03 Urine Catheter - Catheter Legionella Antigen - Final 11/15/20 07:03 Urine Catheter - Catheter Streptococcus pneumoniae Antigen (M - Final ABG Data ABG results: ABG 11/15/20 08:00 Specimen Type ART Sample Site R Radial pH 7.34 L Bicarbonate Actual 24.1 Total CO2 26 Base Excess -2 O2 Saturation 88 L O2 % 100 ABG pCO2 44.9 ABG pO2 59 L Gabriel Test Positive Respiration Rate 16 O2 Delivery Device Adult Vent Vent Mode AC Tidal Volume 450 POC PEEP 15 Radiography Diagnostic Testing: Radiology Impression Chest X-Ray 11/15/20 06:52 IMPRESSION: 1. Interstitial pneumonitis in both lungs worrisome for Covid 19 pneumonia. 2. Pneumomediastinum and soft tissue air emphysema in both sides of the neck. 3. Satisfactory placement of ET tube and NG tube. Electronically Signed: Heath Modi MD at 9:34 EDT , Service support , Physical Exam Narrative General: Sedated on vent support. Tube feed. HEENT: Atraumatic, PERRLA, EOMI, Normocephalic Oral: No Gingival or Mucosal Lesions/ Ulcerations Neck: Supple, No JVD, Negative Carotid Bruits Lungs: Air entry severely diminished in bilateral lung bases. On volume control mode. Cardiovascular: Regular rate, Regular Rhythm, Normal S1, Normal S2, No murmurs Abdomen: Bowel Sounds Present, Soft, Non Tender, Non-Distended : No renal angle tenderness. No suprapubic tenderness. Extremities: No edema, Capillary Refill Less than 3 Seconds Skin: No rashes, No breakdown Musculoskeletal: No Tenderness to Palpation of Joints or Extremities Neurological: Cranial nerves II-XII grossly intact Psych/Mental Status: Sedated Assessment & Plan Assessment/Plan (1) Acute respiratory failure with hypoxia: (2) COVID-19: PLAN: 1. Acute hypoxic respiratory failure secondary to bilateral COVID- 19 pneumonia: Date of onset October 31, quarantine for 20 days through . On high flow oxygen. Seen by construction electrician will try to obtain CPAP if possible. On scheduled bronchodilator. Patient on Decadron and remdesivir. On Mucinex, incentive spirometry and Pep. 11/11: Prone position encouraged. Continue treatment. Discussed with the patient's who was on phone with the patient and gave clinical update. 11/12: On Mucinex. Wendi Kline added. On Cepacol, and supportive medications. Continue to titrate down the oxygen to keep pulse ox 90%. 11/13: Patient has severe tachypnea and hypoxia even on AIRVO, subsequently changed to BiPAP 80% FiO2, . Patient heart rate is controlled and blood pressure is 105/59. Monitor closely. If you have further desaturate will need to transfer to ICU for possible need for intubation. Labs including inflammatory markers ordered. 11/14: Discussed with nursing staff and construction electrician. Patient is being transferred to the ICU. Labs shows elevated procalcitonin and high inflammatory markers. Leukocytosis with lymphopenia. K4.5. 9/11: On ventilator being managed by construction electrician. On broad-spectrum IV antibiotic Zosyn. Infectious work-up pending. On tube feed. Leukocytosis probably from steroid. 2. Asthma and allergies: Patient has history of smoking cigarettes, started in teenage and quit few years ago. Patient home theophylline is on hold because of narrow therapeutic index and potential drug drug interaction.. 3. Obesity, possible obstructive sleep apnea: BMI 31 KG per meter square VTE prophylaxis: High risk. LMWH. CODE STATUS: Full code Total time of the visit including total time spent in counseling or coordination of care, (more than 50% of the total time, spent in obtaining medical information from nurses and other ancillary care providers,explaining to the patient about labs, imaging, diagnosis and management), discussion with respiratory therapist and nursing staff, review of labs and imaging is 30 minutes. Charges/Coding Visit Charges Inpatient E&M: 32464 Subs Hosp L3
--- NOTE | 2020-11-15 13:26 | NURSING ---
trailer rental clerk called at this time for PICC placement
--- NOTE | 2020-11-15 16:20 | RAD_ITS ---
INDICATION: Possible Pneumothorax EXAMINATION/TECHNIQUE: X-RAY - XR Chest 1 View COMPARISON: 11/15/2020. FINDINGS: Bilateral airspace opacities are again seen. The cardiomediastinal silhouette is stable. There is a new bilateral pneumothoraces, 1.6 cm air gap on the right and 0.9 cm airgap on the left. There is increased widespread subcutaneous emphysema now along the anterior chest wall. There is persistent pneumomediastinum. Lines and tubes are unchanged. The osseous structures are unchanged. RAD/Chest 1 View (Portable) IMPRESSION: New bilateral pneumothoraces, 1.6 cm air gap on the right and 0.9 cm airgap on the left. There is increased widespread subcutaneous emphysema now along the anterior chest wall. There is persistent pneumomediastinum. Bilateral airspace opacities concerning for infection. Electronically Signed: Honorio Mijares MD at 17:13 EDT Tel , Service support ,
--- NOTE | 2020-11-15 18:47 | RAD_ITS ---
INDICATION: s/p bilat chest tube placement EXAMINATION/TECHNIQUE: X-RAY - XR Chest 1 View COMPARISON: 11/15/2020. FINDINGS: Bilateral airspace opacities are again seen. The cardiomediastinal silhouette is stable. Unchanged trace bilateral pneumothoraces. Interval advancement of right-sided chest tube within the right hemithorax. Remaining lines and tubes are unchanged. There is widespread subcutaneous emphysema, in the neck and along the anterior chest wall. There is persistent pneumomediastinum. The osseous structures are unchanged. RAD/Chest 1 View (Portable) IMPRESSION: Interval advancement of right-sided chest tube within the right hemithorax. Otherwise stable exam. Electronically Signed: Honorio Mijares MD at 20:53 EDT Tel , Service support ,
--- NOTE | 2020-11-15 18:48 | NURSING ---
Dr Nunez at bedside @ 18:10 Dr Nunez cleaned and prepped the right side of the chest with chloroprep and inserted a size 20F chest tube. Was placed on -30mm of suctin and has a significant air leak and she is aware. chest tube was placed at 18:27. Patient was also prepped with 2% lidocaine Dr Nunez cleaned and prepped the Left side of the chest with chloroprep and inserted a size 20F chest tube. Was placed on -30mm of suction and also has a significant air leak and she is aware. Chest tube was placed at 18:40. Also prepped with 2% lidocaine. Chest x-ray was ordered and completed at 18:51.
--- NOTE | 2020-11-15 19:04 | RAD_ITS ---
INDICATION: CHEST TUBE PLACEMENT, #3 EXAMINATION/TECHNIQUE: X-RAY - XR Chest 1 View COMPARISON: Chest radiograph same date. FINDINGS: Bilateral airspace opacities are again seen. The cardiomediastinal silhouette is stable. Improved now trace bilateral pneumothoraces. Interval placement of bilateral chest tubes within the left and right hemithoraces. Remaining lines and tubes are unchanged. There is widespread subcutaneous emphysema, in the neck and along the anterior chest wall. There is persistent pneumomediastinum. The osseous structures are unchanged. RAD/Chest 1 View IMPRESSION: Interval placement of bilateral chest tubes within the left and right hemithoraces. Improved now trace bilateral pneumothoraces. Otherwise stable exam. Electronically Signed: Honorio Mijares MD at 20:56 EDT Tel , Service support ,
--- NOTE | 2020-11-15 19:04 | RAD_ITS ---
INDICATION: CHEST TUBE PLACEMENT, #2 EXAMINATION/TECHNIQUE: X-RAY - XR Chest 1 View COMPARISON: Chest radiograph same date. FINDINGS: Bilateral airspace opacities are again seen. The cardiomediastinal silhouette is stable. Unchanged trace bilateral pneumothoraces. Interval advancement of right-sided chest tube within the right hemithorax. Remaining lines and tubes are unchanged. There is widespread subcutaneous emphysema, in the neck and along the anterior chest wall. There is persistent pneumomediastinum. The osseous structures are unchanged. RAD/Chest 1 View IMPRESSION: Interval advancement of right-sided chest tube within the right hemithorax. Otherwise stable exam. Electronically Signed: Honorio Mijares MD at 20:55 EDT Tel , Service support ,
--- NOTE | 2020-11-15 19:05 | RAD_ITS ---
INDICATION: CHEST TUBE PLACEMENT #4 EXAMINATION/TECHNIQUE: X-RAY - XR Chest 1 View COMPARISON: Chest radiograph same date. FINDINGS: Bilateral airspace opacities are again seen. The cardiomediastinal silhouette is stable. Unchanged trace bilateral pneumothoraces. Interval retraction of right-sided chest tube within the right hemithorax. Remaining lines and tubes are unchanged. There is widespread subcutaneous emphysema, in the neck and along the anterior chest wall. There is persistent pneumomediastinum. The osseous structures are unchanged. RAD/Chest 1 View IMPRESSION: Slight interval retraction of the right-sided chest tube within the right hemithorax. Otherwise, stable exam. Electronically Signed: Honorio Mijares MD at 20:58 EDT Tel , Service support ,
[2020-11-15] MEDS: TITRATION PARAMETER CHANGE 1 EACH IV (19:24)
--- NOTE | 2020-11-15 20:36 | PCM.OPRPT ---
Report of Operation Date of Procedure: 11/15/20 Pre-Operative Diagnosis: bilateral pneumothoraces Post-Operative Diagnosis: same Surgery/Procedure Performed:: placement of right and left thoracostomy tubes Surgeon: Isabel Nunez Type of Anesthesia: Local Drains: 20 Fr right and left chest tubes Estimated Blood Loss (mL): < 10 ml Description of Procedure: Consent was obtained via telephone with patient's significant other and witnessed by ICU nurse. Right chest tube was placed first. Skin was cleansed with skin cleansing preparation and sterile drapes placed Rib cage was palpated out and the skin and subcutaneous tissues was infiltrated with 1% xylocaine Skin incision was made with 15 blade scalpel. Kassi clamp was placed into the wound and blunt dissection was done to the rib and then over the rib and placed into the pleural space. A 20 Fr chest tube was then placed into the pleural space and directed superiorly. It was then connected to tubing attached to Pleurevac device and placed on 30 cm water suction. The chest tube was sutured to the chest wall with 0 silk suture. Sterile dressing was then applied. The left chest tube was then placed next. Skin was cleansed with skin cleansing preparation and sterile drapes placed Rib cage was palpated out and the skin and subcutaneous tissues was infiltrated with 1% xylocaine Skin incision was made with 15 blade scalpel. Kassi clamp was placed into the wound and blunt dissection was done to the rib and then over the rib and placed into the pleural space. A 20 Fr chest tube was then placed into the pleural space and directed superiorly. It was then connected to tubing attached to Pleurevac device and placed on 30 cm water suction. The chest tube was sutured to the chest wall with 0 silk suture. Sterile dressing was then applied. Complications none noted
[2020-11-16] VITALS (36 sets, daily range): BP systolic 99–148; BP diastolic 56–85; PULSE 76–93; RESP 13–28; TEMP 36.1–37.5; O2SAT 82–95
[2020-11-16] MEDS: Propofol 10MG/Ml 1,000 MG/100 ML Bottle 18.6 MG CONT INF (00:10)
[2020-11-16] MEDS: Dexmedetomidine 1,000 mcg in 0.9% NS 240 mL 38.9 MCG CONT INF (01:35)
[2020-11-16 03:52] LABS: Absolute Lymphocyte Count 0.45 X10^3/uL (0.83-4.51); Absolute Neutrophil Count 18.3 X10^3/uL (2.0-7.7); Basophil# 0.03 X10^3/uL; Basophil% 0.2 % (0-1); Eosinophil# 0.12 X10^3/uL; Eosinophils% 0.6 % (0-5); Hematocrit 38.8 % (40-54); Hemoglobin 12.9 g/dL (13.0-16.5); Lymphocyte # 0.45 X10^3/ul (0.83-4.51); Lymphocyte % 2.3 % (19-41); Mean Corp Hgb Conc 33.2 g/dL (32-36); Mean Corpuscular Hgb 30.6 pg (27.0-32.0); Mean Corpuscular Volume 92.2 fL (80-94); Mean Platelet Vol. 8.9 fl (6.2-12.0); Monocyte# 0.68 X10^3/uL; Monocyte% 3.4 % (0-10); NRBC Flagged by Analyzer 0 % (0-5); Neutrophil # 18.28 X10^3/uL (2.7-7.7); Neutrophil % 91.4 % (47-70); POSITIVE DIFFERENTIAL YES; Platelet Count 569 K/mm3 (150-450); RBC Distribution Width CV 13.2 % (11.6-14.6); RBC Distribution Width SD 45.1 fl (35.1-43.9); Red Blood Count 4.21 M/mm3 (4.6-6.2)
[2020-11-16 03:54] LABS: Differential Indicated SCAN CRITERIA MET
[2020-11-16 04:50] LABS: ALB/GLOB Ratio 0.4 RATIO (0.9-2.4); AST(SGOT) 28 U/L (15-37); Alanine Aminotransfer ALT/SGPT 41 U/L (16-61); Albumin, Serum 1.7 g/dL (3.2-5.0); Alkaline Phosphatase 76 U/L (45-117); Anion Gap 10 (5-15); BUN 51 mg/dL (7-18); BUN/Creat Ratio 34.2 RATIO (10-20); Calcium,Total 7.4 mg/dL (8.5-10.1); Chloride 106 mmol/L (98-107); Creatinine, Serum 1.49 mg/dL (0.70-1.30); EST Glomerular Filtration Rate 55 mL/min (>60); Est Glom Filt Rate - Afr Amer 66 mL/min (>60); Estimated Creatinine Clearance 70.89 ml/min; Globulin 4.3 g/dL (2.2-4.2); Glucose 120 mg/dL (74-106); Potassium 4.3 mmol/L (3.5-5.1); Sodium Level 136 mmol/L (136-145)
[2020-11-16] MEDS: TITRATION PARAMETER CHANGE 1 EACH IV (05:12)
[2020-11-16] MEDS: Propofol 10MG/Ml 1,000 MG/100 ML Bottle 17.4 MG CONT INF ×3 (05:22→22:52)
[2020-11-16 05:44] LABS: Differential Comment SCANNED
[2020-11-16] MEDS: Ipratropium/Albuterol Sulfate 3 ML AMPUL.NEB INHALATION ×4 (06:58→18:31)
--- NOTE | 2020-11-16 08:08 | PN.CC_ITS ---
Assessment & Plan Assessment/Plan (1) Acute respiratory failure with hypoxia: (2) COVID-19: PLAN: RECOMMENDATIONS: 1. Continue both chest tubes to suction 2. Continue to minimize PEEP if possible. Wean FiO2/PEEP for saturations greater than 90%. 3. Continue paralytic therapy 4. Continue empiric antibiotics 5. Continue aggressive sedation given need for paralytics 6. Propofol and fentanyl for sedation. 7. Continue Decadron to complete 10-day treatment course. 8. Continue twice daily Lovenox. 9. Okay to initiate tube feeds IMPRESSIONS: 1. Acute hypoxemic respiratory failure secondary to COVID-19 pneumonia The patient is unvaccinated with a self-reported history of asthma. He has now completed a treatment course of remdesivir and remains on Decadron. Despite the aforementioned, the patient continued to decompensate from a respiratory perspective, ultimately requiring transfer to the ICU and subsequent intubation on the morning of November 15. At this time, the patient will be maintained on assist control mode of mechanical ventilation. FiO2 and PEEP will be weaned as tolerated. Goal to maintain plateau pressures less than 30. The patient will be continued on twice daily Lovenox as ordered. Patient has had progression of crepitus despite bilateral chest tubes indicating an element of pneumomediastinum complicating care. Will remain paralyzed with significant sedation. 2. Self-reported asthma/obesity/obstructive sleep apnea Complicates care, management, recovery and prognosis. Continue bronchodilator therapy as ordered. Addendum 1:45 PM: Spoke at length with the patient's and [id number]. She is the POA. She was updated and stated that she wanted to use all means possible. She was aware that there was discussion about possible referral to the [facility] or other tertiary center for ECMO evaluation. Discussed with [facility] for over 25 minutes on the case. Patient is being evaluated/reviewed by the ECMO team. No decision at this time. Patient's is willing to have the pa kanchannt transferred to [facility] or any facility for ECMO if he qualifies. TIME: 80 minutes of critical care time, inclusive of procedures, was spent addressing the patient's acute hypoxemic respiratory failure secondary to COVID- 19 pneumonia, history of asthma, review of all data and collaboration with the care team. (6:15 AM to 7:15 AM, 12:30 PM to 1:45 PM) Subjective Subjective Significant overnight events noted. Patient found to have bilateral pneumothora josefina requiring chest tube placement. Patient has had significant leak. Patient remains on Nimbex, Precedex, propofol, Versed and fentanyl. Patient's oxygenation has been marginal despite 100% FiO2 and PEEP of 15. Significant leaks noted out of both chest tubes. No fever has been noted. Objective Data Objective Data Vital Signs: Vital Signs Temp Pulse Resp BP Pulse Ox 37.5 C H 78 18 109/80 88 11/16/20 00:00 11/16/20 07:00 11/16/20 07:00 11/16/20 07:00 11/16/20 07:00 Oxygen Flow Rate (L/min) 60 Oxygen Delivery Method Mechanical Ventilator Weight: 96.9 kg Body Mass Index (BMI) 30.9 Intake & Output: Intake and Output for Last 24 Hours 11/14/20 11/15/20 11/16/20 23:59 23:59 23:59 Intake Total 1400 / 1400 1944.69 / 2034.99 931.72 / 931.72 Output Total 950 / 950 315 / 765 850 / 850 Balance 450 / 450 1629.69 / 1269.99 81.72 / 81.72 Medical Nutrition Assessment Dietitian: Malnutrition Criteria Met Start: 11/09/20 10:12 Freq: Status: Active Protocol: Document 11/15/20 11:18 AG (Rec: 11/15/20 11:18 AG [id number]) Nutrition Malnutrition Evidence of Malnutrition Exists Yes Malnutrition (severe): Acute Illness/Injury Evidenced By Suboptimal Energy Intake ( Severe),Weight Loss (Severe) Clinical Problem Acute Disease or Injury Related Malnutrition Etiology Severe, acute malnutrition r/t inadequate energy intake d/t acute illness Signs/Symptoms as evidenced by 3kg/3.1% unintentional wt loss and estimated PO intake meeting < 50% x 1 week prior to admission Status Active Problem Recommendation Dietitian Recommendations/Changes Will make NPO while intubated; Vital AF 1.2 via OGT at goal rate of 80mL/hour w/ 125mL H2O flush every 4 hours to provide 2304 calories, 144 g protein, and 2307mL total fluid/day. Would start at 25mL /hour and increase by 15mL every 8-12 hours as tolerated until goal rate is achieved. Lab / Micro Data Result Diagrams: 11/16/20 03:44 11/16/20 03:44 Labs: Laboratory Results - last 24 hr 11/15/20 07:05: MRSA (PCR) Negative 11/15/20 08:10: Total Creatine Kinase 130, Triglycerides 242 H 11/15/20 08:10: WBC 20.4 H, RBC 4.95, Hgb 15.1, Hct 45.4, MCV 91.7, MCH 30.5, MCHC 33.3, RDW Std Deviation 44.5 H, RDW Coeff of Jaclyn 13.2, Plt Count 647 H, MPV 9.2, Immature Gran % (Auto) 2.300 H, Neut % (Auto) 89.4 H, Lymph % (Auto) 4.4 L, Sunflower % (Auto) 2.3, Eos % (Auto) 1.4, Baso % (Auto) 0.2, Absolute Neuts (auto) 18.2 H, Absolute Lymphs (auto) 0.89, Nucleated RBC % 0 11/15/20 08:10: Sodium 134 L, Potassium 4.1, Chloride 102, Carbon Dioxide 23.0, Anion Gap 9, BUN 37 H, Creatinine 1.05, Estim Creat Clear Calc 100.59, Est GFR (MDRD) Af Amer 100, Est GFR (MDRD) Non-Af 82, BUN/Creatinine Ratio 35.2 H, Glucose 104, Calcium 8.8, Total Bilirubin 1.20 H, AST 40 H, ALT 88 H, Alkaline Phosphatase 92, Total Protein 6.9, Albumin 2.3 L, Globulin 4.6 H, Albumin/Globulin Ratio 0.5 L 11/16/20 03:44: WBC 20.0 H, RBC 4.21 L, Hgb 12.9 L, Hct 38.8 L, MCV 92.2, MCH 30.6, MCHC 33.2, RDW Std Deviation 45.1 H, RDW Coeff of Jaclyn 13.2, Plt Count 569 H, MPV 8.9, Immature Gran % (Auto) 2.100 H, Neut % (Auto) 91.4 H, Lymph % (Auto) 2.3 L, Sunflower % (Auto) 3.4, Eos % (Auto) 0.6, Baso % (Auto) 0.2, Absolute Neuts (auto) 18.3 H, Absolute Lymphs (auto) 0.45 L, Nucleated RBC % 0, Differential Comment SCANNED 11/16/20 03:44: Sodium 136, Potassium 4.3, Chloride 106, Carbon Dioxide 20.0 L, Anion Gap 10, BUN 51 H, Creatinine 1.49 H, Estim Creat Clear Calc 70.89, Est GFR (MDRD) Af Amer 66, Est GFR (MDRD) Non-Af 55 L, BUN/Creatinine Ratio 34.2 H, Glucose 120 H, Calcium 7.4 L, Total Bilirubin 0.90, AST 28, ALT 41, Alkaline Phosphatase 76, Total Protein 6.0 L, Albumin 1.7 L, Globulin 4.3 H, Albumin/Globulin Ratio 0.4 L Micro: Microbiology 11/15/20 07:00 Sputum, Induced/Lukens Gram Stain - Final 11/15/20 07:03 Urine Catheter - Catheter Legionella Antigen - Final 11/15/20 07:03 Urine Catheter - Catheter Streptococcus pneumoniae Antigen (M - Final Radiography Diagnostic Testing: Radiology Impression Chest X-Ray 11/15/20 06:52 IMPRESSION: 1. Interstitial pneumonitis in both lungs worrisome for Covid 19 pneumonia. 2. Pneumomediastinum and soft tissue air emphysema in both sides of the neck. 3. Satisfactory placement of ET tube and NG tube. Electronically Signed: Heath Modi MD at 9:34 EDT , Service support , Chest X-Ray 11/15/20 16:20 IMPRESSION: New bilateral pneumothoraces, 1.6 cm air gap on the right and 0.9 cm airgap on the left. There is increased widespread subcutaneous emphysema now along the anterior chest wall. There is persistent pneumomediastinum. Bilateral airspace opacities concerning for infection. Electronically Signed: Honorio Mijares MD at 17:13 EDT Tel , Service support , Chest X-Ray 11/15/20 18:47 IMPRESSION: Interval advancement of right-sided chest tube within the right hemithorax. Otherwise stable exam. Electronically Signed: Honorio Mijares MD at 20:53 EDT Tel , Service support , Chest X-Ray 11/15/20 19:04 IMPRESSION: Interval advancement of right-sided chest tube within the right hemithorax. Otherwise stable exam. Electronically Signed: Honorio Mijares MD at 20:55 EDT Tel , Service support , Chest X-Ray 11/15/20 19:04 IMPRESSION: Interval placement of bilateral chest tubes within the left and right hemithoraces. Improved now trace bilateral pneumothoraces. Otherwise stable exam. Electronically Signed: Honorio Mijares MD at 20:56 EDT Tel , Service support , Chest X-Ray 11/15/20 19:05 IMPRESSION: Slight interval retraction of the right-sided chest tube within the right hemithorax. Otherwise, stable exam. Electronically Signed: Honorio Mijares MD at 20:58 EDT Tel , Service support , Physical Exam Const alert General Appearance: cooperative and on BiPAP Nutritional Appearance: obese HEENT normocephalic and head/scalp atraumatic Eyes PERRL and conjunctivae normal Neck supple General: trachea midline Chest Negative for inspection of chest normal Chest: symmetrical chest wall rise and crepitus other (Extensive throughout the face, neck and chest) Resp Resp Narrative: Significant air leak from both chest tubes noted Effort and Inspection: tachypneic Auscultation: diminished lung sounds; Negative for rales, rhonchi or wheezes Cardio regular rate and regular rhythm GI normal to inspection, nondistended, normoactive bowel sounds Extremity no clubbing, cyanosis or edema Skin no rashes or lesions noted Neuro CN's II-XII intact bilaterally and no focal motor deficits Psych cooperative and affect normal Charges/Coding Procedures Hospitalists Procedures: 04338 Critial Care 1st Hr Multi Select Codes Hospitalists' Procedures Procedures: 89133 Critial Care Addl 30 Min
[2020-11-16] MEDS: Dexmedetomidine 1,000 mcg in 0.9% NS 240 mL 36.3 MCG CONT INF ×3 (09:00→22:53)
[2020-11-16] MEDS: Propofol 10MG/Ml 1,000 MG/100 ML Bottle 23.3 MG CONT INF (10:20)
[2020-11-16 10:36] LABS: Allen Test Positive; Base Excess -5 mmol/L (-2 to +2); Bicarbonate 24.7 mmol/L (22-26); Blood Gas Specimen Type ART; FI02 100; Mode AC; O2 Delivery Device Adult Vent; PEEP 15; PO2 67 mmHG (75-100); RR 16; SITE R Radial; SO2 85 % (95-99); Total Carbon Dioxide 27 mmol/L; Vt 450; pCO2 75.8 mmHg (35-45); pH 7.12 (7.35-7.45)
--- NOTE | 2020-11-16 10:45 | CASEMGMT ---
According to patient insurance [employer], In Network Tertiary Facilities are: [facility], Armando, JOSÉ LUIS, Glory Cantrell, Christian, OSSujata, Carmella, . Eb Lee RNCM
[2020-11-16] MEDS: Enoxaparin 100 MG/ML Syringe SC ×2 (10:56→20:50)
[2020-11-16] MEDS: Montelukast 10 MG Tablet GT (10:57)
[2020-11-16] MEDS: dexAMETHasone 4 MG Tablet 6 MG GT (10:57)
[2020-11-16] MEDS: CHLORHEXIDINE GLUC 2% CLOTH 1 EACH TOWELETTE TOPICAL (11:07)
[2020-11-16] MEDS: Chlorhexidine 15 ML PO ×2 (11:07→20:51)
--- NOTE | 2020-11-16 11:30 | PN.HOSP_ITS ---
Subjective Subjective Overnight events noted from nursing staff, nighttime hospitalist and chemical production engineer. Overnight patient found to have bilateral pneumothoraces requiring bilateral chest tube placement. Patient had significant leak. Patient on multiple IV drips including propofol, fentanyl, Versed, Nimbex. On maximal setting of ventilator 100% FiO2 PEEP 15, volume control AC mode Objective Data Objective Data Vital Signs: Vital Signs Temp Pulse Resp BP Pulse Ox 98.7 F 91 16 128/76 H 84 11/16/20 08:00 11/16/20 10:31 11/16/20 10:31 11/16/20 08:00 11/16/20 10:31 Oxygen Flow Rate (L/min) 60 Oxygen Delivery Method Mechanical Ventilator Weight: 213 lb 10.047 oz Body Mass Index (BMI) 30.9 Intake & Output: Intake and Output for Last 24 Hours 11/14/20 11/15/20 11/16/20 23:59 23:59 23:59 Intake Total 1400 / 1400 1944.69 / 2034.99 1222.39 / 1222.39 Output Total 950 / 950 315 / 765 1450 / 1450 Balance 450 / 450 1629.69 / 1269.99 -227.61 / -227.61 Medical Nutrition Assessment Dietitian: Malnutrition Criteria Met Start: 11/09/20 10 :12 Freq: Status: Active Protocol: Document 11/16/20 10:35 AG (Rec: 11/16/20 10:35 [id number]) Nutrition Malnutrition Evidence of Malnutrition Exists Yes Malnutrition (severe): Acute Illness/Injury Evidenced By Suboptimal Energy Intake ( Severe),Weight Loss (Severe) Clinical Problem Acute Disease or Injury Related Malnutrition Etiology Severe, acute malnutrition r/t inadequate energy intake d/t acute illness Signs/Symptoms as evidenced by 9.9kg/9.3% unintentional wt loss and estimated PO intake meeting < 50% x 1 week prior to admission Status Active Problem Recommendation Dietitian Recommendations/Changes NPO while intubated; When medically indicated, recommend Vital AF 1.2 via OGT at goal rate of 80mL/hour w/ 125mL H2O flush every 4 hours to provide 2304 calories, 144 g protein, and 2307mL total fluid/day. Would start at 25mL /hour and increase by 15mL every 8-12 hours as tolerated until goal rate is achieved. Lab / Micro Data Result Diagrams: 11/16/20 03:44 11/16/20 03:44 Labs: Laboratory Results - last 24 hr 11/16/20 03:44: WBC 20.0 H, RBC 4.21 L, Hgb 12.9 L, Hct 38.8 L, MCV 92.2, MCH 30.6, MCHC 33.2, RDW Std Deviation 45.1 H, RDW Coeff of Jaclyn 13.2, Plt Count 569 H, MPV 8.9, Immature Gran % (Auto) 2.100 H, Neut % (Auto) 91.4 H, Lymph % (Auto) 2.3 L, [place] % (Auto) 3.4, Eos % (Auto) 0.6, Baso % (Auto) 0.2, Absolute Neuts (auto) 18.3 H, Absolute Lymphs (auto) 0.45 L, Nucleated RBC % 0, Differential Comment SCANNED 11/16/20 03:44: Sodium 136, Potassium 4.3, Chloride 106, Carbon Dioxide 20.0 L, Anion Gap 10, BUN 51 H, Creatinine 1.49 H, Estim Creat Clear Calc 70.89, Est GFR (MDRD) Af Amer 66, Est GFR (MDRD) Non-Af 55 L, BUN/Creatinine Ratio 34.2 H, Glucose 120 H, Calcium 7.4 L, Total Bilirubin 0.90, AST 28, ALT 41, Alkaline Phosphatase 76, Total Protein 6.0 L, Albumin 1.7 L, Globulin 4.3 H, Alb umin/Globulin Ratio 0.4 L Micro: Microbiology 11/15/20 07:00 Sputum, Induced/Lukens Gram Stain - Final 11/15/20 07:03 Urine Catheter - Catheter Legionella Antigen - Final 11/15/20 07:03 Urine Catheter - Catheter Streptococcus pneumoniae Antigen (M - Final ABG Data ABG results: ABG 11/16/20 10:29 Specimen Type ART Sample Site R Radial pH 7.12 L* Bicarbonate Actual 24.7 Total CO2 27 Base Excess -5 L O2 Saturation 85 L O2 % 100 ABG pCO2 75.8 H* ABG pO2 67 L Gabriel Test Positive Respiration Rate 16 O2 Delivery Device Adult Vent Vent Mode AC Tidal Volume 450 POC PEEP 15 Crit Call To/Read Back Yes Blood Gas Notified Whom fred Radiography Diagnostic Testing: Radiology Impression Chest X-Ray 11/15/20 16:20 IMPRESSION: New bilateral pneumothoraces, 1.6 cm air gap on the right and 0.9 cm airgap on the left. There is increased widespread subcutaneous emphysema now along the anterior chest wall. There is persistent pneumomediastinum. Bilateral airspace opacities concerning for infection. Electronically Signed: Honorio Mijares MD at 17:13 EDT Tel , Service support , Chest X-Ray 11/15/20 18:47 IMPRESSION: Interval advancement of right-sided chest tube within the right hemithorax. Otherwise stable exam. Electronically Signed: Honorio Mijares MD at 20:53 EDT Tel , Service support , Chest X-Ray 11/15/20 19:04 IMPRESSION: Interval advancement of right-sided chest tube within the right hemithorax. Otherwise stable exam. Electronically Signed: Honorio Mijares MD at 20:55 EDT Tel , Service support , Chest X-Ray 11/15/20 19:04 IMPRESSION: Interval placement of bilateral chest tubes within the left and right hemithoraces. Improved now trace bilateral pneumothoraces. Otherwise stable exam. Electronically Signed: Honorio Mijares MD at 20:56 EDT Tel , Service support , Chest X-Ray 11/15/20 19:05 IMPRESSION: Slight interval retraction of the right-sided chest tube within the right hemithorax. Otherwise, stable exam. Electronically Signed: Honorio Mijares MD at 20:58 EDT Tel , Service support , Physical Exam Narrative Physical exam General: Sedated on vent support. On multiple sedative including neuroparalytic drip. HEENT: Atraumatic, PERRLA, EOMI, Normocephalic Oral: Subcutaneous emphysema on neck, face and upper chest. ET and OG tube. Neck: Supple, No JVD, Negative Carotid Bruits. Air swelling/subcutaneous emphysema around neck Lungs: Bilateral chest tube. Right chest tube does not have air leak but left 1 has. on APRV mode, 100 Fio2 Cardiovascular: Sinus rhythm with PVCs, ventricular bigeminy normal S1, Normal S2, No murmurs Abdomen: Bowel Sounds sluggish. Soft, Non Tender, Non-Distended : No renal angle tenderness. No suprapubic tenderness. Extremities: Mild bilateral ankle edema edema, Capillary Refill Less than 3 Seconds Skin: No rashes, No breakdown Musculoskeletal: No Tenderness to Palpation of Joints or Extremities Neurological: Cranial nerves II-XII grossly intact. Unobtainable on sedation Psych/Mental Status: Sedated Assessment & Plan Assessment/Plan (1) Acute respiratory failure with hypoxia: (2) COVID-19: PLAN: 1. Acute hypoxic respiratory failure secondary to bilateral COVID- 19 pneumonia: Date of onset October 31, quarantine for 20 days through . On high flow oxygen. Seen by chemical production engineer will try to obtain CPAP if possible. On scheduled bronchodilator. Patient on Decadron and remdesivir. On Mucinex, incentive spirometry and Pep. 11/11: Prone position encouraged. Continue treatment. Discussed with the patient's who was on phone with the patient and gave clinical update. 11/12: On Mucinex. Tessalon Perles added. On Cepacol, and supportive medications. Continue to titrate down the oxygen to keep pulse ox 90%. 11/13: Patient has severe tachypnea and hypoxia even on AIRVO, subsequently changed to BiPAP 80% FiO2, . Patient heart rate is controlled and blood pressure is 105/59. Monitor closely. If you have further desaturate will need to transfer to ICU for possible need for intubation. Labs including inflammatory markers ordered. 11/14: Discussed with nursing staff and chemical production engineer. Patient is being transferred to the ICU. Labs shows elevated procalcitonin and high inflammatory markers. Leukocytosis with lymphopenia. K4.5. 11/15: On ventilator being managed by chemical production engineer. On broad-spectrum IV antibiotic Zosyn. Infectious work-up pending. On tube feed. Leukocytosis probably from steroid. 11/16: Bilateral soft tissue emphysema on both side of neck, chest wall and pneumomediastinum on 11/15 it seems even before intubation which got worse yesterday with new bilateral pneumothoraces and bilateral chest tube inserted last night. Patient on APRV mode of ventilator 100% FiO2. Surgery was consulted. Discussed with chemical production engineer and advised transfer to tertiary care who has ECMO facility. Transfer line [facility] called and clinical information exchanged. Awaiting call for call back. 2. Asthma and allergies: Patient has history of smoking cigarettes, started in teenage and quit few years ago. Patient home theophylline is on hold because of narrow therapeutic index and potential drug drug interaction.. 3. Obesity, possible obstructive sleep apnea: BMI 31 KG per meter square VTE prophylaxis: High risk. LMWH. Guarded prognosis CODE STATUS: Full code Total time of the visit including total time spent in counseling or coordination of care, (more than 50% of the total time, spent in obtaining medical information from nurses and other ancillary care providers,explaining to the patient about labs, imaging, diagnosis and management), discussion with respiratory therapist and nursing staff, review of labs and imaging is 30 minutes. Charges/Coding Visit Charges Inpatient E&M: 41696 Subs Hosp L3
[2020-11-16 13:05] LABS: Allen Test Positive; Base Excess -6 mmol/L (-2 to +2); Blood Gas Specimen Type ART; FI02 100; Mode AC; O2 Delivery Device Adult Vent; PEEP 16; PO2 79 mmHG (75-100); RR 16; SITE R Radial; SO2 91 % (95-99); Total Carbon Dioxide 24 mmol/L; Vt 500; pCO2 59.1 mmHg (35-45); pH 7.18 (7.35-7.45)
--- NOTE | 2020-11-16 13:55 | CPS ---
Dr. Altamirano notified of ABG results.
[2020-11-16] MEDS: Propofol 10MG/Ml 1,000 MG/100 ML Bottle 20.3 MG CONT INF (14:45)
--- NOTE | 2020-11-16 16:37 | PCM.PN.SRG ---
Subjective Subjective Patient sedated/intubated/paralyzed Objective Data Objective Data Vital Signs: Vital Signs Temp Pulse Resp BP Pulse Ox 99.3 F H 92 16 125/74 H 92 11/16/20 16:00 11/16/20 16:00 11/16/20 16:00 11/16/20 16:00 11/16/20 16:00 Oxygen Flow Rate (L/min) 60 Oxygen Delivery Method Mechanical Ventilator Weight: 96.9 kg Body Mass Index (BMI) 30.9 Intake & Output: Intake and Output for Last 24 Hours 11/14/20 11/15/20 11/16/20 23:59 23:59 23:59 Intake Total 1400 / 1400 1944.69 / 2034.99 2081.08 / 208.08 Output Total 950 / 950 315 / 765 1775 / 1775 Balance 450 / 450 1629.69 / 1269.99 306.08 / 306.08 Medical Nutrition Assessment Dietitian: Malnutrition Criteria Met Start: 11/09/20 10:12 Freq: Status: Active Protocol: Document 11/16/20 10:35 AG (Rec: 11/16/20 10:35 AG [id number]) Nutrition Malnutrition Evidence of Malnutrition Exists Yes Malnutrition (severe): Acute Illness/Injury Evidenced By Suboptimal Energy Intake ( Severe),Weight Loss (Severe) Clinical Problem Acute Disease or Injury Related Malnutrition Etiology Severe, acute malnutrition r/t inadequate energy intake d/t acute illness Signs/Symptoms as evidenced by 9.9kg/9.3% unintentional wt loss and estimated PO intake meeting < 50% x 1 week prior to admission Status Active Problem Recommendation Dietitian Recommendations/Changes NPO while intubated; When medically indicated, recommend Vital AF 1.2 via OGT at goal rate of 80mL/hour w/ 125mL H2O flush every 4 hours to provide 2304 calories, 144 g protein, and 2307mL total fluid/day. Would start at 25mL /hour and increase by 15mL every 8-12 hours as tolerated until goal rate is achieved. Lab / Micro Data Result Diagrams: 11/16/20 03:44 11/16/20 03:44 Labs: Laboratory Results - last 24 hr 11/16/20 03:44: WBC 20.0 H, RBC 4.21 L, Hgb 12.9 L, Hct 38.8 L, MCV 92.2, MCH 30.6, MCHC 33.2, RDW Std Deviation 45.1 H, RDW Coeff of Jaclyn 13.2, Plt Count 569 H, MPV 8.9, Immature Gran % (Auto) 2.100 H, Neut % (Auto) 91.4 H, Lymph % (Auto) 2.3 L, [place] % (Auto) 3.4, Eos % (Auto) 0.6, Baso % (Auto) 0.2, Absolute Neuts (auto) 18.3 H, Absolute Lymphs (auto) 0.45 L, Nucleated RBC % 0, Differential Comment SCANNED 11/16/20 03:44: Sodium 136, Potassium 4.3, Chloride 106, Carbon Dioxide 20.0 L, Anion Gap 10, BUN 51 H, Creatinine 1.49 H, Estim Creat Clear Calc 70.89, Est GFR (MDRD) Af Amer 66, Est GFR (MDRD) Non-Af 55 L, BUN/Creatinine Ratio 34.2 H, Glucose 120 H, Calcium 7.4 L, Total Bilirubin 0.90, AST 28, ALT 41, Alkaline Phosphatase 76, Total Protein 6.0 L, Albumin 1.7 L, Globulin 4.3 H, Albumin/Globulin Ratio 0.4 L Micro: Microbiology 11/15/20 07:00 Sputum, Induced/Lukens Gram Stain - Final 11/15/20 07:00 Sputum, Induced/Lukens Respiratory Culture - Preliminary Appears to be normal respiratory linda. Further studies to follow. 11/15/20 07:03 Urine Catheter - Catheter Legionella Antigen - Final 11/15/20 07:03 Urine Catheter - Catheter Streptococcus pneumoniae Antigen (M - Final ABG Data ABG results: ABG 11/16/20 11/16/20 10:29 12:59 Specimen Type ART ART Sample Site R Radial R Radial pH 7.12 L* 7.18 L* Bicarbonate Actual 24.7 22.0 Total CO2 27 24 Base Excess -5 L -6 L O2 Saturation 85 L 91 L O2 % 100 100 ABG pCO2 75.8 H* 59.1 H ABG pO2 67 L 79 Gabriel Test Positive Positive Respiration Rate 16 16 O2 Delivery Device Adult Vent Adult Vent Vent Mode AC AC Tidal Volume 450 500 POC PEEP 15 16 Crit Call To/Read Back Yes Yes Blood Gas Notified Whom fred Radiography Diagnostic Testing: Radiology Impression Chest X-Ray 11/15/20 16:20 IMPRESSION: New bilateral pneumothoraces, 1.6 cm air gap on the right and 0.9 cm airgap on the left. There is increased widespread subcutaneous emphysema now along the anterior chest wall. There is persistent pneumomediastinum. Bilateral airspace opacities concerning for infection. Electronically Signed: Honorio Mijares MD at 17:13 EDT Tel , Service support , Chest X-Ray 11/15/20 18:47 IMPRESSION: Interval advancement of right-sided chest tube within the right hemithorax. Otherwise stable exam. Electronically Signed: Honorio Mijares MD at 20:53 EDT Tel , Service support , Chest X-Ray 11/15/20 19:04 IMPRESSION: Interval advancement of right-sided chest tube within the right hemithorax. Otherwise stable exam. Electronically Signed: Honorio Mijares MD at 20:55 EDT Tel , Service support , Chest X-Ray 11/15/20 19:04 IMPRESSION: Interval placement of bilateral chest tubes within the left and right hemithoraces. Improved now trace bilateral pneumothoraces. Otherwise stable exam. Electronically Signed: Honorio Mijares MD at 20:56 EDT Tel , Service support , Chest X-Ray 11/15/20 19:05 IMPRESSION: Slight interval retraction of the right-sided chest tube within the right hemithorax. Otherwise, stable exam. Electronically Signed: Honorio Mijares MD at 20:58 EDT Tel , Service support , Physical Exam Const General Appearance: patient mechanically ventilated Assessment & Plan Assessment/Plan (1) Bilateral pneumothoraces: PLAN: less of air leak on right, but still large air leak of left therapy as per Internal/ICU Medicine Will sign off case for now Please contact me if any further surgical intervention required
--- NOTE | 2020-11-16 18:33 | PCM.DC.SUM ---
Providers Date of Admission: 11/08/20 Primary Care Physician: Dr. Henry Lagos MD Consultations 11/08/20 14:55 Consult: Timber Management Professor / Pulmonary Medicine Routine Consulting Provider: Pulmonary Medicine lamonte Lpoez Reason for Consult: respiratory failure EMERGENT Consult: No Notified: Yes Date Notified: 11/08/20 Time Notified: 14:55 Method of Notification: Text 11/15/20 17:25 Consult: General Surgery Routine Consulting Provider: Isabel Nunez Reason for Consult: bilat pneumo EMERGENT Consult: Yes MD Notified: Yes Date Notified: 11/15/20 Time Notified: 17:25 Method of Notification: phone Reason For Visit: COVID 19 Diagnosis Discharge Diagnosis (1) Bilateral pneumothoraces: Status: Acute Code(s): J93.9 - Pneumothorax, unspecified Medications at Discharge Home Medications duloxetine [Cymbalta] 60 mg PO DAILY 11/08/20 fluticasone propion-salmeterol [Advair Diskus] 1 inh INHALATION Q12H 11/08/20 montelukast [Singulair] 10 mg PO DAILY 11/08/20 theophylline 300 mg PO BID 11/08/20 valsartan 320 mg PO DAILY 11/08/20 Hospital Course Summary of Care Provided Hospital Course: 1. Acute hypoxic respiratory failure secondary to bilateral COVID-19 pneumonia: Date of onset October 31, quarantine for 20 days through . On high flow oxygen. Seen by contact center consultant will try to obtain CPAP if possible. On scheduled bronchodilator. Patient on Decadron and remdesivir. On Mucinex, incentive spirometry and Pep. Patient had long hospital stay and he deteriorated. Initially was managed on high flow oxygen, prone positioning Mucinex, noninvasive pressure, BiPAP but when he did not improve and he worsened, subsequently was transferred to ICU and put on ventilator. Patient intubated in the morning of 11/15. The patient had pneumomediastinum even before intubation. After intubation he had bilateral pneumothorax, soft tissue emphysema on both side of neck upper chest wall and pneumomediastinum. Surgeon was consulted and patient had bilateral chest tube. Subsequently patient was put on volume control. Is in 100% FiO2 PEEP 15. Transfer line [facility] was called but did not had ECMO circuit. Subsequently, [facility] was called. ECMO team conference call was called and discussed with the patient clinical and vent setting and parameters.His ECMO resp score calculated 76% which showed inhospital favorable risk for accepting for ECMO Overall clinical status was found severe ARDS due to COVID-19 pneumonia with PO2/FiO2 less than 100 I talked to patient's fianc? and informed about acceptance by [facility] ECMO team and patient was transferred to [facility]. Patient was transferred to clinic. 2. Asthma and allergies: Patient has history of smoking cigarettes, started in teenage and quit few years ago. Patient home theophylline is on hold because of narrow therapeutic index and potential drug drug interaction.. 3. Obesity, possible obstructive sleep apnea: BMI 31 KG per meter square but decreased to 29 kg/m? during hospital course VTE prophylaxis: High risk. LMWH. Total time spent more than 30 minutes in transfer and ECMO conference call. Medical Records Data Medical Nutrition Assessment Dietitian: Malnutrition Criteria Met Start: 11/09/20 10:12 Freq: Status: Active Protocol: Document 11/16/20 10:35 (Rec: 11/16/20 10:35 [id number]) Nutrition Malnutrition Evidence of Malnutrition Exists Yes Malnutrition (severe): Acute Illness/Injury Evidenced By Suboptimal Energy Intake ( Severe),Weight Loss (Severe) Clinical Problem Acute Disease or Injury Related Malnutrition Etiology Severe, acute malnutrition r/t inadequate energy intake d/t acute illness Signs/Symptoms as evidenced by 9.9kg/9.3% unintentional wt loss and estimated PO intake meeting < 50% x 1 week prior to admission Status Active Problem Recommendation Dietitian Recommendations/Changes NPO while intubated; When medically indicated, recommend Vital AF 1.2 via OGT at goal rate of 80mL/hour w/ 125mL H2O flush every 4 hours to provide 2304 calories, 144 g protein, and 2307mL total fluid/day. Would start at 25mL /hour and increase by 15mL every 8-12 hours as tolerated until goal rate is achieved. Weight / BMI Weight Weight: 213 lb 10.047 oz Body Mass Index (BMI) 30.9 ABG / Lab / Microbiology Data Result Diagrams: 11/16/20 03:44 11/16/20 03:44 Laboratory: Laboratory Results - last 24 hr 11/16/20 03:44: WBC 20.0 H, RBC 4.21 L, Hgb 12.9 L, Hct 38.8 L, MCV 92.2, MCH 30.6, MCHC 33.2, RDW Std Deviation 45.1 H, RDW Coeff of Jaclyn 13.2, Plt Count 569 H, MPV 8.9, Immature Gran % (Auto) 2.100 H, Neut % (Auto) 91.4 H, Lymph % (Auto) 2.3 L, [place] % (Auto) 3.4, Eos % (Auto) 0.6, Baso % (Auto) 0.2, Absolute Neuts (auto) 18.3 H, Absolute Lymphs (auto) 0.45 L, Nucleated RBC % 0, Differential Comment SCANNED 11/16/20 03:44: Sodium 136, Potassium 4.3, Chloride 106, Carbon Dioxide 20.0 L, Anion Gap 10, BUN 51 H, Creatinine 1.49 H, Estim Creat Clear Calc 70.89, Est GFR (MDRD) Af Amer 66, Est GFR (MDRD) Non-Af 55 L, BUN/Creatinine Ratio 34.2 H, Glucose 120 H, Calcium 7.4 L, Total Bilirubin 0.90, AST 28, ALT 41, Alkaline Phosphatase 76, Total Protein 6.0 L, Albumin 1.7 L, Globulin 4.3 H, Albumin/Globulin Ratio 0.4 L Microbiology: Microbiology 11/15/20 07:00 Sputum, Induced/Lukens Gram Stain - Final 11/15/20 07:00 Sputum, Induced/Lukens Respiratory Culture - Preliminary Appears to be normal respiratory linda. Further studies to follow. 11/15/20 07:03 Urine Catheter - Catheter Legionella Antigen - Final 11/15/20 07:03 Urine Catheter - Catheter Streptococcus pneumoniae Antigen (M - Final ABG: ABG 11/16/20 11/16/20 10:29 12:59 Specimen Type ART ART Sample Site R Radial R Radial pH 7.12 L* 7.18 L* Bicarbonate Actual 24.7 22.0 Total CO2 27 24 Base Excess -5 L -6 L O2 Saturation 85 L 91 L O2 % 100 100 ABG pCO2 75.8 H* 59.1 H ABG pO2 67 L 79 Gabriel Test Positive Positive Respiration Rate 16 16 O2 Delivery Device Adult Vent Adult Vent Vent Mode AC AC Tidal Volume 450 500 POC PEEP 15 16 Crit Call To/Read Back Yes Yes Blood Gas Notified Whom fred Radiography Diagnostic Testing: Radiology Impression Chest X-Ray 11/15/20 18:47 IMPRESSION: Interval advancement of right-sided chest tube within the right hemithorax. Otherwise stable exam. Electronically Signed: Honorio Mijares MD at 20:53 EDT Tel , Service support , Chest X-Ray 11/15/20 19:04 IMPRESSION: Interval advancement of right-sided chest tube within the right hemithorax. Otherwise stable exam. Electronically Signed: Honorio Mijares MD at 20:55 EDT Tel , Service support , Chest X-Ray 11/15/20 19:04 IMPRESSION: Interval placement of bilateral chest tubes within the left and right hemithoraces. Improved now trace bilateral pneumothoraces. Otherwise stable exam. Electronically Signed: Honorio Mijares MD at 20:56 EDT Tel , Service support , Chest X-Ray 11/15/20 19:05 IMPRESSION: Slight interval retraction of the right-sided chest tube within the right hemithorax. Otherwise, stable exam. Electronically Signed: Honorio Mijares MD at 20:58 EDT Tel , Service support , Meaningful Use Info Meaningful Use Diagnoses (Choose all that apply): None applicable Discharge Plan Admission Admit Date/Time: 11/08/20 14:34 Primary Reason for Your Visit: covid-19 Attending Provider: Barron Julian Primary Care Provider: Henry Lagos Consulting Providers: Mike Altamirano ; Too Grajeda ; Idalmis Barillas NP ; Isabel Nunez Discharge Orders/Prescriptions Prescriptions: No Action duloxetine [Cymbalta] 60 mg Capsule,Delayed Release(Dr/Ec) 60 mg PO DAILY RF: 0 montelukast [Singulair] 10 mg Tablet 10 mg PO DAILY RF: 0 valsartan 320 mg Tablet 320 mg PO DAILY RF: 0 theophylline 300 mg Tablet 300 mg PO BID RF: 0 fluticasone propion-salmeterol [Advair Diskus] 250-50 mcg/dose Blister With Device 1 inh INHALATION Q12H RF: 0 Referrals / Follow Up: Henry Lagos MD [Primary Care Provider] - Disposition Disposition (needs filled in before D/C Order can be placed): Acute Care Hospital Charges/Coding Visit Charges Inpatient E&M: 11799 Disch Hosp
--- NOTE | 2020-11-16 23:21 | NURSING ---
Critical Care transport team here to transport patient.
--- NOTE | 2020-11-16 23:55 | NURSING ---
Transport team leaves with patient for [facility], Report called to Terri Becerra RN who is patients fiance notified of transport.
--- NOTE | 2020-11-28 12:22 | CASEMGMT ---
Social Work SW received call from pt significant other Terri Samano. While pt was at [facility] HCPOA was completed naming Terri. Terri states pt is now at and they have lost HCPOA papers and will not allow her to make decisions for pt. Phone call placed to RAMA Dougherty at [facility] and explained documents were completed. For continuity of care, VINC[facility]ZO note indicating document was completed naming Terri Samano was faxed to nurse. VINCENZO did consult lead [facility] Vo concerning this matter. JEAN MARIE Singleton
== END 2020-11-16 23:55 | disposition short-term general hospital (02) | DRG 208 ==
LOC: MS3 11-11 08:39 → ICU 11-14 14:49
PROVIDERS: Internal Medicine Critical Care Medicine; PCP Internal Medicine; Visit Provider Internal Medicine
DX: U07.1 COVID-19 (principal); J96.01 Acute respiratory failure with hypoxia; J12.82 Pneumonia due to coronavirus disease 2019; T79.7XXA Traumatic subcutaneous emphysema, initial encounter; J95.811 Postprocedural pneumothorax; J45.909 Unspecified asthma, uncomplicated; Z87.891 Personal history of nicotine dependence; E66.9 Obesity, unspecified; Z68.31 Body mass index [BMI] 31.0-31.9, adult; G47.33 Obstructive sleep apnea (adult) (pediatric); I10 Essential (primary) hypertension
CPT/HCPCS: 31500; 31720; 36415; 36600; 71045; 80048; 80053; 80076; 80198; 82550; 82803; 83615; 83735; 84075; 84100; 84145; 84478; 85025; 85027; 85379; 86140; 87070; 87205; 87449; 87641; 94002; 94003; 94640; 94660; 94762; 97802; 99251; J7050; A4216; G0463; J0330; J3010